=== PATIENT | female | born 1950 | race Caucasian/White ===

== ENCOUNTER 2016-08-09 18:05 | Inpatient (IN) | payer OTHER ==
[2016-08-09] VITALS (7 sets, daily range): BP systolic 141–174; BP diastolic 70–87; PULSE 84–96; RESP 16–24; O2SAT 91–100
[~2016-08-09] VITALS: Ht 162.6 cm; Wt 45.5 kg
[~2016-08-09 18:05] MED LIST: CARD240C6 PO; ENOX40P SQ; LANSO30 NG; LEVE500S TUBE; PHEN100C PEG; PHEN20S PEG; VANC500 PEG
[2016-08-09] MEDS ORDERED: SODIUM CHLOR 0.9% 1000 ML INJ 1,000 ML IV SCH (18:30)
--- NOTE | 2016-08-09 18:40 | PD ---
HPI Chief Complaint: Bleeding Time Seen by Provider: 18:11 Travel History International Travel<30 days: No Contact w/Intl Traveler<30days: No Traveled to known affect area: No History of Present Illness HPI 65-year-old female was brought in by her for blood coming out of the tracheostomy. Patient has history of recurrent seizure and on multiple seizure medication. Patient was a difficult intubation and patient had tracheostomy placement December 2015, reportedly by Dr. Estes. Patient has been doing well. Patient's states the patient started having blood and blood clots coming out of the tracheostomy this evening. Patient's the noncommunicable normally. History provided by her . Patient is not on any blood thinner. Patient's reported no recent coughing congestion. 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 Patient has recurrent seizures since then and on medications. Patient also has weakness of the left arm left leg and limited movement of the right leg. Patient can move her right arm actively. PFSH Past Medical History Heart Rhythm Problems: No Cancer: Yes (glioblastoma brain tumor) High Cholesterol: No Chemotherapy: Yes Chest Pain: No Congestive Heart Failure: No Cerebrovascular Accident: No Diabetes: No Diminished Hearing: No Endocrine: No Gastrointestinal Disorders: Yes GERD: Yes Genitourinary: No Headaches: Yes Hypertension: Yes Immune Disorder: No Implanted Vascular Access Dvce: No Musculoskeletal: No Neurologic: Yes (GLIOBLASTOMA, PER PT'S SPOUSE) Psychiatric: No Reproductive: No Respiratory: No Migraines: Yes Radiation Therapy: Yes (MARCH 2015) Seizures: Yes Thyroid Disease: No Ulcer: Yes Menopausal: Yes : 0 Para: 0 Miscarriage: 0 : 0 Past Surgical History Abdominal Surgery: No Cardiac Surgery: No Ear Surgery: No Endocrine Surgery: No Eye Surgery: No Genitourinary Surgery: No Gynecologic Surgery: Yes (hysterectomy 1970) Hysterectomy: Yes Neurologic Surgery: Yes (cranaotmy) Oral Surgery: Yes (tonsils) Thoracic Surgery: No Tonsillectomy: Yes Other Surgery: Yes (TRACH PLACED) Social History Alcohol Use: No Tobacco Use: No Substance Use: No Allergies-Medications (Allergen,Severity, Reaction): Coded Allergies: Codeine (Unverified Allergy, Unknown, Swelling, 08/09/16) Reported Meds & Prescriptions Reported Meds & Active Scripts Active Reported Prevacid Solutab ODT (Lansoprazole) 30 Mg Tab 30 Mg G-TUBE DAILY Mix with 4 ml water before giving via tube. Keppra Liq (Levetiracetam) 500 Mg/5 Ml Soln 7.5 Ml PEG BID Dilantin-125 Liq (Phenytoin) 125 Mg/5 Ml Susp 6 Ml PEG TID Phenobarbital Liq (Phenobarbital) 20 Mg/5 Ml Elix 10 Ml PEG BID Cardizem (Diltiazem HCl) 30 Mg Tab 10 Mg PEG DAILY Review of Systems General / Constitutional: No: Fever Eyes: No: Visual changes HENT: No: Headaches Cardiovascular: No: Chest Pain or Discomfort Respiratory: Positive: Hemoptysis, No: Shortness of Breath Gastrointestinal: No: Abdominal Pain Genitourinary: No: Dysuria Musculoskeletal: No: Pain Skin: No Rash Neurologic: No: Weakness Psychiatric: No: Depression Endocrine: No: Polydipsia Hematologic/Lymphatic: No: Easy Bruising Physical Exam Narrative GENERAL: Well-nourished, well-developed patient. SKIN: Warm and dry. HEAD: Normocephalic. EYES: No scleral icterus. No injection or drainage. NECK: Supple, trachea midline. No JVD or lymphadenopathy. Tracheostomy in place. Patient has fresh blood and blood clots coming out of the tracheostomy. CARDIOVASCULAR: Regular rate and rhythm without murmurs, gallops, or rubs. RESPIRATORY: Breath sounds equal bilaterally. No accessory muscle use. Patient has rhonchi bibasilar. GASTROINTESTINAL: Abdomen soft, non-tender, nondistended. MUSCULOSKELETAL: No cyanosis, or edema. BACK: Nontender without obvious deformity. No CVA tenderness. Neurologic exam: Patient awake alert, noncommunicable. Patient can move the right arm. No movement detected on the left arm left leg on the right leg. Patient in contracture position. Data Data Last Documented VS Vital Signs Date Time Temp Pulse Resp B/P Pulse Ox O2 Delivery O2 Flow Rate FiO2 08/09/16 18:40 84 24 149/71 91 T-piece 6 08/09/16 18:23 50 Orders Electrocardiogram (08/09/16 18:19) Complete Blood Count With Diff (08/09/16 18:19) Comprehensive Metabolic Panel (08/09/16 18:19) Prothrombin Time / Inr (Pt) (08/09/16 18:19) Act Partial Throm Time (Ptt) (08/09/16 18:19) Chest, Single Ap (08/09/16 18:19) Iv Access Insert/Monitor (08/09/16 18:19) Ecg Monitoring (08/09/16 18:19) Oximetry (08/09/16 18:19) Type And Screen (08/09/16 18:19) Sodium Chlor 0.9% 1000 Ml Inj (Ns 1000 M (08/09/16 18:30) Admit Order (Ed Use Only) (08/09/16 18:45) Labs Laboratory Tests Test 08/09/16 18:26 White Blood Count 10.9 TH/MM3 Red Blood Count 3.67 MIL/MM3 Hemoglobin 11.0 GM/DL Hematocrit 33.7 % Mean Corpuscular Volume 91.9 FL Mean Corpuscular Hemoglobin 30.1 PG Mean Corpuscular Hemoglobin 32.8 % Concent Red Cell Distribution Width 18.5 % Platelet Count 318 TH/MM3 Mean Platelet Volume 7.6 FL Neutrophils (%) (Auto) 54.7 % Lymphocytes (%) (Auto) 20.7 % Monocytes (%) (Auto) 9.7 % Eosinophils (%) (Auto) 14.2 % Basophils (%) (Auto) 0.7 % Neutrophils # (Auto) 5.9 TH/MM3 Lymphocytes # (Auto) 2.3 TH/MM3 Monocytes # (Auto) 1.1 TH/MM3 Eosinophils # (Auto) 1.6 TH/MM3 Basophils # (Auto) 0.1 TH/MM3 CBC Comment DIFF FINAL Differential Comment MDM Medical Decision Making Medical Screen Exam Complete: Yes Emergency Medical Condition: Yes Differential Diagnosis Differential diagnosis including AV malformation, fistula, tracheal irritation, coagulopathy. Narrative Course 65-year-old female with active bleeding from tracheostomy. Gentle suction applied to the tracheostomy. Flow by oxygen given. IV started. CBC and Coagulation profile obtained. Normal saline solution 1 25 cc an hour. I spoke with Dr. Brand, enterprise application architect on-call for Dr. Estes. Advised ICU admission and observation and tracheostomy suction if necessary. Diagnosis Primary Impression: Hemoptysis Additional Impression: Tracheostomy complication Qualified Code: J95.01 - Hemorrhage from tracheostomy stoma Admitting Information Admitting Physician Requests: Admit Pedrito Hollingsworth MD Aug 09, 2016 18:40
[2016-08-09] MEDS ORDERED: LEVE500S PEG (18:54)
[2016-08-09] MEDS ORDERED: DILA125S PEG (18:54)
[2016-08-09] MEDS ORDERED: DILT31TA PEG (18:54)
[2016-08-09] MEDS ORDERED: PREV30TA3 G-TUBE (18:54)
[2016-08-09] MEDS ORDERED: PHEN20EL3 PEG (18:54)
[2016-08-09 18:55] LABS: AUTOMATED NEUTROPHIL # 5.9 TH/MM3 (1.8-7.7); BASOPHIL # 0.1 TH/MM3 (0-0.2); BASOPHIL % 0.7 % (0.0-2.0); EOSINOPHIL # 1.6 TH/MM3 (0-0.4); EOSINOPHIL % 14.2 % (0.0-4.0); HEMATOCRIT 33.7 % (35.0-46.0); HEMO FLAGS DIFF FINAL; LYMPH % 20.7 % (9.0-44.0); LYMPHOCYTE # 2.3 TH/MM3 (1.0-4.8); MEAN CELL VOLUME 91.9 FL (80.0-100.0); MEAN CORPUSCULAR HEMOGLOBIN 30.1 PG (27.0-34.0); MEAN CORPUSCULAR HGB CONC 32.8 % (32.0-36.0); MONO % 9.7 % (0.0-8.0); NEUT % 54.7 % (16.0-70.0); PLATELET COUNT 318 TH/MM3 (150-450); RED BLOOD COUNT 3.67 MIL/MM3 (4.00-5.30); RED CELL DISTRIBUTION WIDTH 18.5 % (11.6-17.2); WHITE BLOOD COUNT 10.9 TH/MM3 (4.0-11.0)
[2016-08-09 19:13] LABS: ANION GAP 8 MEQ/L (5-15); AST (GOT) 59 U/L (15-37); BICARBONATE 31.5 MEQ/L (21.0-32.0); BLOOD UREA NITROGEN 21 MG/DL (7-18); CHLORIDE 99 MEQ/L (98-107); GLOMERULAR FILTRATION RATE 125 ML/MIN (>89); POTASSIUM 3.6 MEQ/L (3.5-5.1); SODIUM (NA) 138 MEQ/L (136-145)
[2016-08-09 19:16] LABS: ALKALINE PHOSPHATASE 232 U/L (45-117); ALT (GPT) 112 U/L (10-53); TOTAL BILIRUBIN ADULT 0.2 MG/DL (0.2-1.0)
[2016-08-09 19:17] LABS: APTT (PATIENT) 28.4 SEC (24.3-30.1); PROTHROMBIN TIME - PATIENT 10.9 SEC (9.8-11.6)
--- NOTE | 2016-08-09 19:22 | RADRPT ---
EXAM DATE/TIME: 08/09/2016 18:20 [facility] COMPARISON: CHEST SINGLE AP, February 02, 2016, 4:28. INDICATIONS : Shortness of breath. MEDICAL HISTORY : None. SURGICAL HISTORY : None. ENCOUNTER: Initial ACUITY: 1 day PAIN SCORE: Non-responsive. LOCATION: Bilateral chest FINDINGS: A single view of the chest demonstrates the lungs to be symmetrically aerated without evidence of mas s, infiltrate or effusion. There is a tracheostomy tube in good position. The cardiomediastinal cont ours are unremarkable. Osseous structures are intact. CONCLUSION: No acute disease. Zeus Wharton MD on August 09, 2016 at 19:20 Board Certified Radiologist. This report was verified electronically.
--- NOTE | 2016-08-09 22:57 | HHI.HP ---
HPI Service Critical Care Medicine Primary Care Physician Tato Colunga MD Admission Diagnosis hemoptysis other Diagnosis: Travel History International Travel<30 Days: No Contact w/Intl Traveler <30 Da: No Traveled to Known Affected Are: No History of Present Illness 38 yo WF who presented to ED with reported massive hemoptysis via tracheostomy. She has a PMH of glioblastoma multiforme diagnosed in December 2014. She underwent craniectomy with partial resection by Dr. Mathew and then was subsequently treated with radiation in March 2015 and Temodar chemotherapy starting in April 2015. She had some response to chemo but it was discontinued after about a year due to an intolerance (per ). She was admitted for about a month in December/January of 2015 with status epilepticus. Seizures were difficult to control despite multiple anticonvulsants. She had bitten her tongue during seizures resulting in significant swelling and airway compromise so she could not be safely extubated. Therefore she underwent trach (01/29/[address] Jerez) and PEG. She remains nonverbal, bed bound. Trach is managed by Dr. Estes and remains in place due to concern that her baseline level of alertness may not be adequate to protect airway. states this may in part be attributed to her anticonvulsants, and there have been efforts to wean these. Tonight at around 18:30 her was repositioning her in bed and she coughed up a large amount of bright red blood that covered her clothes, legs, bedsheets. He states he had not manipulated her trach or suctioned prior to this. He states she had not been experiencing cough or fever and has never had hemoptysis before aside from some blood tinged secretions with suctioning. She had another episode of hemoptysis in the car as he drove her to the hospital. Upon arrival to ED, Dr. Hollingsworth states she had an episode of large bright red hemoptysis and she had desaturation requiring 50% trach collar. At baseline she is on room air. Trach was suctioned gently and there were some clots removed also. Dr. Hollingsworth discussed with ham boner Dr. Brand who recommended ICU admission. She is not on anticoagulants or antiplatelets. Review of Systems Respiratory: COMPLAINS OF: Shortness of breath Past Family Social History Allergies: Coded Allergies: Codeine (Verified Allergy, Unknown, Swelling, 08/15/16) Past Medical History Glioblastoma multiforme diagnosed in December 2014 status post chemotherapy and radiation Seizure disorder Past Surgical History Craniotomy with stereotactic tumor resection 01/19/15 (Dr. Mathew) Percutaneous Tracheostomy 01/29/16 (Dr. Jerez) PEG hysterectomy Tonsillectomy Reported Medications Keppra 750 mg by mouth per tube twice a day Phenobarbital 40 mg per tube twice a day Cardizem 10 mg per tube daily Dilantin 150 mg per tube 3 times a day Prevacid 30 mg per tube daily Family History Unable to obtain family medical history patient due to clinical condition. Social History She is . She lives at home and her cares for her. No tobacco, alcohol, or illicit drug use. Physical Exam Vital Signs Vital Signs Date Time Temp Pulse Resp B/P Pulse Ox O2 Delivery O2 Flow Rate FiO2 08/09/16 22:00 84 20 141/71 100 T-piece 6 08/09/16 21:00 84 20 145/70 99 T-piece 6 08/09/16 20:00 96 20 174/87 96 T-piece 6 08/09/16 19:00 88 20 154/78 97 T-piece 6 08/09/16 18:40 84 24 149/71 91 T-piece 6 08/09/16 18:23 22 98 Venturi Mask 50 08/09/16 18:21 87 22 98 Venturi Mask 50 08/09/16 18:12 84 16 142/74 99 Physical Exam Temp 99.9 blood pressure 141/71 R 20 pulse 84 Sats 98% on 50% trach collar GENERAL: Thin and chronically ill-appearing female with trach who is nonverbal, contracted SKIN: Warm and dry. HEAD: Atraumatic. Normocephalic. EYES: Pupils equal and round. No scleral icterus. ENT: No nasal bleeding, no blood in oropharynx NECK: 6.[address] Cuff currently deflated. There is some dried blood within the trach inner cannula. There is some granulation tissue and superior aspect of stoma without clot or active bleeding.There is small ring of dried blood on the sides of the stoma without active bleeding. CARDIOVASCULAR: Regular rate and rhythm, sinus on the monitor. No murmurs rubs or gallops. RESPIRATORY: appears to be breathing comfortably, no accessory muscle use, CTAB without rhonchi. No wheeze or rales. GASTROINTESTINAL: Abdomen soft, non-tender, nondistended. Bowel sounds present. MUSCULOSKELETAL: Extremities without clubbing, cyanosis. Contractures of LUE and BLE. NEUROLOGICAL: Eyes open, nonverbal, spontanously moves RUE, BLE are contracted. Does not follow commands. Laboratory Laboratory Tests Test 08/09/16 08/09/16 18:24 18:26 Antibody Identification Anti-D White Blood Count 10.9 Red Blood Count 3.67 Hemoglobin 11.0 Hematocrit 33.7 Mean Corpuscular Volume 91.9 Mean Corpuscular Hemoglobin 30.1 Mean Corpuscular Hemoglobin 32.8 Concent Red Cell Distribution Width 18.5 Platelet Count 318 Mean Platelet Volume 7.6 Neutrophils (%) (Auto) 54.7 Lymphocytes (%) (Auto) 20.7 Monocytes (%) (Auto) 9.7 Eosinophils (%) (Auto) 14.2 Basophils (%) (Auto) 0.7 Neutrophils # (Auto) 5.9 Lymphocytes # (Auto) 2.3 Monocytes # (Auto) 1.1 Eosinophils # (Auto) 1.6 Basophils # (Auto) 0.1 CBC Comment DIFF FINAL Differential Comment Prothrombin Time 10.9 Prothromb Time International 1.0 Ratio Activated Partial 28.4 Thromboplast Time Sodium Level 138 Potassium Level 3.6 Chloride Level 99 Carbon Dioxide Level 31.5 Anion Gap 8 Blood Urea Nitrogen 21 Creatinine 0.50 Estimat Glomerular Filtration 125 Rate Random Glucose 117 Calcium Level 8.3 Total Bilirubin 0.2 Aspartate Amino Transf 59 (AST/SGOT) Alanine Aminotransferase 112 (ALT/SGPT) Alkaline Phosphatase 232 Total Protein 7.6 Albumin 2.8 Blood Type O NEGATIVE Antibody Screen POSITIVE Crossmatch Leukocyte-Reduced Red Blood Cells Blood Bank Comment Result Diagram: 08/09/16182508/09/161825 Assessment and Plan Assessment and Plan NEURO: Glioblastoma multiforme Seizure disorder Checked phenobarbital and dilantin levels which are therapeutic Phenobarbital 40 mg by mouth twice a day Dilantin 150 mg per tube 3 times a day Keppra 750 mg per tube twice a day Patient no longer on chemo for GBM RESP: Hemoptysis. Tracheostomy (placed 01/29/16 Dr. Jerez) Given duration of patients trach and presentation of large volume hemoptysis, tracheoinnominate fistula must be considered. Currently hemoptysis has stopped. Discussed with . Intervention for tracheoinnominate fistula would seem aggressive in this patient given her current overall condition and quality of life. Nonetheless, he indicates that he wants aggressive measures ( short of CPR/shocks) to stabilize her. Discussed with Dr. Oliva of general surgery who states [facility] consult is instead needed if TIF is of concern. Discussed with Dr. Marquez who recommended CT chest and neck and notification if recurrent large volume bleeding. On way to get CT patient coughed and expectorated about 10-15 cc of BRB and grape-sized clot via trach and she was jose back to ED room where this was suctioned gently and then hemoptysis stopped. -ABG demonstrates satisfactory ventilation, tolerating 50% trach collar - Morphine prn cough. -Avoid suctioning unless she has active hemoptysis that is not clearing. --Keep trach cuff inflated -Empiric abx, mucomyst/albuterol nebs. -Pulmonology consult, Dr. Brand. --Notify [facility] of massive hemoptysis. CV: Continue Cardizem 10 mg per tube daily 0.9 NaCl at 50 mL/h Labetalol/ hydralazine as needed for systolic pressure greater than 150 GI: Dysphagia s/p PEG NPO, may need rigid bronchoscopy to evaluate trachea. Initiate tube feeds when workup completed. FEN/RENAL: Shin in place. Monitor intake and output. Monitor electrolyte and replace as indicated ID: UTI Urinalysis positive leukocyte esterase, positive nitrate, few bacteria. Rocephin 1 g IV every 12 to cover UTI and for empiric community acquired respiratory coverage in setting of hemoptysis. Azithromycin 500 tube q24. HEME: Monitor CBC. Typed and crossed. ENDO: Euglycemic PROPH: SCDs for DVT prophylaxis. Hold on pharmacologic DVT prophylaxis due to hemoptysis. Protonix 40 mg IV IV daily for stress ulcer prophylaxis ACCESS: Peripheral IV providing adequate access at this time. The patient's updated at bedside. Discussed CODE STATUS. He states that she would not want CPR/shocks for pulseless arrest. He does want her to receive active treatment and would be agreeable to procedures as necessary. Would be agreeable to reintubation if needed. CODE STATUS is alternate code (intubation only) Discussed with Dr. Oliva. Discussed with Dr. Caryl Marquez. Critical care time 60 minutes exclusive of separately billable procedures. Nhi Flores MD Aug 09, 2016 22:57
[2016-08-09] MEDS ORDERED: CHLORHEXIDINE GLUCONATE 2 % 1 PACK (2 CLOTHS) TOP PRN (23:15)
[2016-08-09] MEDS ORDERED: ONDANSETRON HCL 4 MG/2 ML VIAL IV PRN (23:15)
[2016-08-09] MEDS ORDERED: MISCELLANEOUS NURSING INFORMATION XX SCH (23:15)
[2016-08-09] MEDS ORDERED: SODIUM CHLORIDE 0.9% FLUSH 5 ML FLUSH IV FLUSH PRN (23:15)
[2016-08-09] MEDS ORDERED: RESP: ALBUTEROL 2.5 MG/3 ML NEB (PRN) INH (23:15)
[2016-08-09] MEDS ORDERED: MORPHINE SULFATE 8 MG/ML INJ ONE (23:23)
[2016-08-10] VITALS (16 sets, daily range): BP systolic 108–145; BP diastolic 57–72; PULSE 72–96; RESP 14–28; TEMP 99–100.2; O2SAT 35–100
[2016-08-10] MEDS: SODIUM CHLOR 0.9% 1000 ML INJ 1,000 ML IV SCH ×2 (00:01→23:12)
[2016-08-10] MEDS ORDERED: MORPHINE SULFATE 4 MG/ML INJ IV PUSH ONE (00:30)
[2016-08-10] MEDS ORDERED: PILL SPLITTER OTHER PRN (00:45)
[2016-08-10] MEDS: PHENobarbital ELIX 20 MG/5 ML CUP PO SCH ×3 (01:39→23:11)
[2016-08-10] MEDS ORDERED: IOHEXOL 350 MG/ML 10 ML VIAL (for RAD DIAG) IV ONE (02:05)
--- NOTE | 2016-08-10 02:18 | RADRPT ---
EXAM DATE/TIME: 08/10/2016 01:54 [facility] COMPARISON: No previous studies available for comparison. INDICATIONS : Bleeding from tracheostomy. IV CONTRAST: 30 cc Omnipaque 350 (iohexol) IV RADIATION DOSE: 10.54 CTDIvol (mGy) MEDICAL HISTORY : Seizures. Hypertension. Glioblastoma SURGICAL HISTORY : Hysterectomy. Craniotomy.Tracheotomy ENCOUNTER: Initial ACUITY: 1 day PAIN SCALE: Non-responsive LOCATION: neck TECHNIQUE: Volumetric scanning of the neck was performed. Using automated exposure control and adjustment of th e mA and/or kV according to patient size, radiation dose was kept as low as reasonably achievable to obtain optimal diagnostic quality images. FINDINGS: Examination of the skull base demonstrates no evidence of deep infiltrating mucosal lesion. The oroph arynx, hypopharynx, glottic and subglottic airway demonstrate no abnormality. Examination of the neck for adenopathy demonstrates no abnormally large lymph nodes by CT criteria. T he thyroid gland demonstrates no abnormality. There is abnormal soft tissue density surrounding the t racheostomy site around the thyroid and strap muscles characteristic of hematoma. No active extravasa tion is seen. The esophagus is fluid filled. Aortic arch appears normal. The brachiocephalic artery p asses inferior to the tracheostomy site. Lung apices demonstrate no evidence of pulmonary nodule. Bone windows are unremarkable. CONCLUSION: 1. Findings compatible with hematoma surrounding the tracheostomy site. No fistula is identified Levi Machado MD on August 10, 2016 at 2:14 Board Certified Radiologist. This report was verified electronically.
--- NOTE | 2016-08-10 02:21 | RADRPT ---
EXAM DATE/TIME: 08/10/2016 01:58 [facility] COMPARISON: CT THORAX W CONTRAST, January 17, 2015, 16:30. INDICATIONS : Hemoptysis. IV CONTRAST: 65 cc Omnipaque 350 (iohexol) IV RADIATION DOSE: 3.32 CTDIvol (mGy) MEDICAL HISTORY : Seizures. Hypertension. Glioblastoma SURGICAL HISTORY : Hysterectomy. Craniotomy.tracheotomy ENCOUNTER: Initial ACUITY: 1 day PAIN SCALE: Non-responsive LOCATION: chest TECHNIQUE: Volumetric scanning of the chest was performed. Using automated exposure control and adjustment of t he mA and/or kV according to patient size, radiation dose was kept as low as reasonably achievable to obtain optimal diagnostic quality images. FINDINGS: Biapical pleural thickening is present. Bibasilar atelectasis is present. No pulmonary nodules are id entified. No pleural effusions are identified. Examination of the mediastinum demonstrates no abnormally enlarged lymph nodes by CT criteria. No axi llary or hilar abnormalities are identified. Coronary artery calcifications are not present. The trac heostomy enters above the brachiocephalic artery with hematoma surrounding the access site. CONCLUSION: 1. No evidence of fistula or hematoma surrounding the tracheostomy site. 2. Bibasilar atelectasis Levi Machado MD on August 10, 2016 at 2:18 Board Certified Radiologist. This report was verified electronically.
[2016-08-10 02:27] LABS: PHENOBARBITAL 22.7 MCG/ML (15.0-40.0)
[2016-08-10] MEDS ORDERED: LABETALOL HCL 100 MG/20 ML VIAL IV PUSH PRN (03:00)
[2016-08-10] MEDS ORDERED: MORPHINE SULFATE 4 MG/ML INJ IV PUSH PRN (03:00)
[2016-08-10 03:21] LABS: BACTERIA, URINE OCC /hpf; BLOOD, URINE SMALL (NEG); GLUCOSE,URINE NEG (NEG); KETONE, URINE NEG (NEG); MUCUS URINE MOD /lpf (OCC); SQUAMOUS EPITHELIAL CELL URINE <1 /hpf (0-5); URINE COLOR YELLOW (YELLW/STRAW)
[2016-08-10 03:22] LABS: COMMENT (UR) CATH-CULTURE IND; CULTURE IF INDICATED CATH CULTURE IND; NITRITE,URINE POS (NEG)
[2016-08-10] MEDS: cefTRIAXone INJ 1,000 MG in SODIUM CHLORIDE 0.9% INJ 100 ML IV SCH ×2 (03:22→15:21)
[2016-08-10] MEDS: RESP: ALBUTEROL 2.5 MG/3 ML NEB (SCH) INH ×4 (03:52→20:18)
[2016-08-10] MEDS: RESP: ACETYLCYSTEINE 20% 30 ML NEB NEB SCH ×4 (03:59→21:22)
[2016-08-10] MEDS: CHLORHEXIDINE GLUCONATE 2 % 1 PACK (2 CLOTHS) TOP SCH (04:00)
[2016-08-10 04:51] LABS: AUTOMATED NEUTROPHIL # 8.3 TH/MM3 (1.8-7.7); BASOPHIL # 0.1 TH/MM3 (0-0.2); BASOPHIL % 0.7 % (0.0-2.0); EOSINOPHIL # 0.8 TH/MM3 (0-0.4); EOSINOPHIL % 6.6 % (0.0-4.0); HEMATOCRIT 31.7 % (35.0-46.0); HEMO FLAGS DIFF FINAL; LYMPHOCYTE # 1.7 TH/MM3 (1.0-4.8); MEAN CORPUSCULAR HEMOGLOBIN 30.3 PG (27.0-34.0); MEAN CORPUSCULAR HGB CONC 32.9 % (32.0-36.0); MONO % 9.1 % (0.0-8.0); NEUT % 69.6 % (16.0-70.0); PLATELET COUNT 245 TH/MM3 (150-450); RED BLOOD COUNT 3.45 MIL/MM3 (4.00-5.30); RED CELL DISTRIBUTION WIDTH 18.6 % (11.6-17.2)
[2016-08-10 05:12] LABS: BICARBONATE 27.5 MEQ/L (21.0-32.0)
[2016-08-10 05:17] LABS: BLOOD GAS BASE EXCESS 3.4 mmol/L (-2-2); BLOOD GAS CARBOXYHEMOGLOBIN 1.6 % (0-4); BLOOD GAS HCO3 28 mmol/L (22-26); BLOOD GAS METHEMOGLOBIN 0.8 % (0-2); BLOOD GAS O2 HGB SATURATION 96 % (90-100); BLOOD GAS OXYGEN CONTENT 13.6 Vol % (12.0-20.0); BLOOD GAS PCO2 45 mmHg (38-42); BLOOD GAS PO2 104 mmHg (61-120); CRITICAL VALUE NO; TEMP CORR TO 98.6
[2016-08-10 05:18] LABS: DRAW SITE RT RADIAL; FIO2 50 %; LITER FLOW 6 L/M; NUMBER OF ARTERIAL PUNCTURES 1; OXYGEN DEVICE T-COLLAR; ULNAR PULSE PRESENT
[2016-08-10 05:19] LABS: STAT YES
[2016-08-10] MEDS: PHENYTOIN SUSP 100 MG/4 ML CUP PEG SCH ×3 (06:37→23:12)
[2016-08-10] MEDS ORDERED: hydrALAZINE HCL 20 MG/ML VIAL IV PUSH PRN (08:45)
[2016-08-10] MEDS: levETIRAcetam 500 MG/5 ML UDC PEG SCH ×2 (08:57→23:12)
[2016-08-10] MEDS: DILTIAZEM HCL 30 MG TAB PEG SCH (08:57)
[2016-08-10] MEDS: PANTOPRAZOLE SODIUM 40 MG VIAL IV SCH (08:57)
[2016-08-10] MEDS: SODIUM CHLORIDE 0.9% FLUSH 5 ML FLUSH IV FLUSH SCH ×2 (09:00→23:12)
[2016-08-10] MEDS: AZITHROMYCIN SUSP 200 MG/5 ML 15 ML BTL TUBE SCH (10:00)
--- NOTE | 2016-08-10 11:33 | PD.CONS ---
History of Present Illness Service CT Surgery Consult Requested By Dr. Flores Reason for Consult Hemoptysis from tracheostomy Primary Care Physician Tato Colunga MD Diagnoses: (1) Seizure (2) Tracheostomy complication (3) Hemoptysis (4) Glioblastoma multiforme of brain History of Present Illness 65 yo female who presented with reported massive hemoptysis via tracheostomy. She has a h/o glioblastoma multiforme diagnosed in December 2014. She underwent craniectomy with partial resection by Dr. Mathew and then was subsequently treated with radiation in March 2015 and chemotherapy starting in April 2015. She had some response to chemo but it was discontinued after about a year. She was admitted for about a month in December/January of 2015 with status epilepticus. Seizures were difficult to control despite multiple anticonvulsants. She had bitten her tongue during seizures resulting in significant swelling and airway compromise so she could not be safely extubated. Therefore she underwent trach (01/29/[address] Jerez) and PEG. She remains nonverbal, bed bound. Trach is managed by Dr. Estes and remains in place due to concern that her baseline level of alertness may not be adequate to protect airway. states this may in part be attributed to her anticonvulsants, and there have been efforts to wean these. Tonight at around 18:30 her was repositioning her in bed and she coughed up a large amount of bright red blood that covered her clothes, legs, bedsheets. He states he had not manipulated her trach or suctioned prior to this. He states she had not been experiencing cough or fever and has never had hemoptysis before aside from some blood tinged secretions with suctioning. She had another episode of hemoptysis in the car as he drove her to the hospital. Upon arrival to ED, Dr. Hollingsworth states she had an episode of large bright red hemoptysis and she had desaturation requiring 50% trach collar. Review of Systems ROS Limitations: Clinical Condition, Altered Mental Status, Speech Impaired Except as stated in HPI: all other systems reviewed are Neg Past Family Social History Allergies: Coded Allergies: Codeine (Unverified Allergy, Unknown, Swelling, 08/09/16) Past Medical History Glioblastoma multiforme diagnosed in December 2014 status post chemotherapy and radiation Seizure disorder Past Surgical History Craniotomy with stereotactic tumor resection 01/19/15 (Dr. Mathew) Percutaneous Tracheostomy 01/29/16 (Dr. Jerez) PEG hysterectomy Tonsillectomy Reported Medications Keppra 750 mg by mouth per tube twice a day Phenobarbital 40 mg per tube twice a day Cardizem 10 mg per tube daily Dilantin 150 mg per tube 3 times a day Prevacid 30 mg per tube daily Family History Unable to obtain family medical history patient due to clinical condition. Social History She is . She lives at home and her cares for her. No tobacco, alcohol, or illicit drug use. Active Ordered Medications Current Medications Medications (Trade) Dose Ordered Sig/Shameka Route Start Time Stop Time Status Last Admin (NS 1000 ml Inj) 1,000 ml @ 50 mls/hr Q20H IV 08/09/16 23:01 08/10/16 00:01 (NS Flush) 2 ml UNSCH PRN IV FLUSH 08/09/16 23:15 (NS Flush) 2 ml BID IV FLUSH 08/10/16 09:00 08/10/16 09:00 (Protonix Inj) 40 mg DAILY IV 08/10/16 09:00 08/10/16 08:57 (Zofran Inj) 4 mg Q6H PRN IV 08/09/16 23:15 Miscellaneous Information 1 [id number] XX 08/09/16 23:15 (Chlorhexidine 2% Cloth) 3 pack Taper DAILY@04 TOP 08/10/16 04:00 08/06/17 03:59 08/10/16 04:00 (Chlorhexidine 2% Cloth) 3 pack UNSCH PRN TOP 08/09/16 23:15 (Cardizem) 10 mg DAILY PEG 08/10/16 09:00 08/10/16 08:57 (Keppra Liq) 750 mg BID PEG 08/10/16 09:00 08/10/16 08:57 (Dilantin Liq) 150 mg Q8HR PEG 08/10/16 06:00 08/10/16 06:37 (PHENobarbital LIQ) 40 mg Q12HR PO 08/10/16 00:45 08/10/16 10:10 (Pill Splitter) 1 ea UNSCH PRN OTHER 08/10/16 00:45 Labetalol HCl 10 mg 10 mg Q4H PRN IV PUSH 08/10/16 03:00 (Rocephin Inj/NS Inj) 100 ml @ 200 mls/hr Q12H IV 08/10/16 03:00 08/10/16 03:22 (Morphine Inj) 2 mg Q3H PRN IV PUSH 08/10/16 03:00 (Zithromax 200 Mg/5 ml Liq) 500 mg Q24H TUBE 08/10/16 10:00 (Apresoline Inj) 10 mg Q4H PRN IV PUSH 08/10/16 08:45 Physical Exam Vital Signs Vital Signs Date Time Temp Pulse Resp B/P Pulse Ox O2 Delivery O2 Flow Rate FiO2 08/10/16 10:00 81 08/10/16 08:00 99.9 72 14 145/72 100 08/10/16 08:00 81 08/10/16 07:59 99.9 72 14 145/72 100 08/10/16 07:55 81 08/10/16 07:52 35 Trach Collar 6.00 08/10/16 06:00 81 08/10/16 04:30 99.9 75 14 108/57 100 08/10/16 04:00 74 08/10/16 04:00 98 Trach Collar 6.00 50 08/10/16 02:30 100.0 84 20 135/60 95 08/10/16 02:30 84 08/09/16 22:00 84 20 141/71 100 T-piece 6 08/09/16 21:00 84 20 145/70 99 T-piece 6 08/09/16 21:00 96 Trach Collar 7.00 60 08/09/16 20:00 96 20 174/87 96 T-piece 6 08/09/16 19:00 88 20 154/78 97 T-piece 6 08/09/16 18:40 84 24 149/71 91 T-piece 6 08/09/16 18:23 22 98 Venturi Mask 50 08/09/16 18:21 87 22 98 Venturi Mask 50 08/09/16 18:12 84 16 142/74 99 Physical Exam GENERAL: This is a cachectic 65y/o female who is lethargic and not responsive currently. SKIN: No rashes, ecchymoses or lesions. Cool and dry. HEAD: Atraumatic. Normocephalic. No temporal or scalp tenderness. EYES: Pupils equal round and reactive. Extraocular motions intact. No scleral icterus. No injection or drainage. ENT: Nose without bleeding, purulent drainage or septal hematoma. Throat without erythema, tonsillar hypertrophy or exudate. Uvula midline. Airway patent. NECK: Trachea midline. No JVD or lymphadenopathy. Cuffed trach in place with cuff partially inflated. There is dried and coagulated blood around the stoma. CARDIOVASCULAR: Regular rate and rhythm without murmurs, gallops, or rubs. RESPIRATORY: Clear to auscultation. Breath sounds equal bilaterally. No wheezes , rales, or rhonchi. GASTROINTESTINAL: Abdomen soft, non-tender, nondistended. No hepato-splenomegaly , or palpable masses. No guarding. MUSCULOSKELETAL: Extremities without clubbing, cyanosis, or edema. No joint tenderness, effusion, or edema noted. No calf tenderness. Negative Homans sign bilaterally. NEUROLOGICAL: unresponsive. Laboratory Laboratory Tests Test 08/09/16 08/09/16 08/10/16 08/10/16 18:24 18:26 02:45 04:27 Antibody Identification Anti-D White Blood Count 10.9 12.0 Red Blood Count 3.67 3.45 Hemoglobin 11.0 10.4 Hematocrit 33.7 31.7 Mean Corpuscular Volume 91.9 92.0 Mean Corpuscular Hemoglobin 30.1 30.3 Mean Corpuscular Hemoglobin 32.8 32.9 Concent Red Cell Distribution Width 18.5 18.6 Platelet Count 318 245 Mean Platelet Volume 7.6 8.0 Neutrophils (%) (Auto) 54.7 69.6 Lymphocytes (%) (Auto) 20.7 14.0 Monocytes (%) (Auto) 9.7 9.1 Eosinophils (%) (Auto) 14.2 6.6 Basophils (%) (Auto) 0.7 0.7 Neutrophils # (Auto) 5.9 8.3 Lymphocytes # (Auto) 2.3 1.7 Monocytes # (Auto) 1.1 1.1 Eosinophils # (Auto) 1.6 0.8 Basophils # (Auto) 0.1 0.1 CBC Comment DIFF FINAL DIFF FINAL Differential Comment Prothrombin Time 10.9 Prothromb Time International 1.0 Ratio Activated Partial 28.4 Thromboplast Time Sodium Level 138 138 Potassium Level 3.6 4.0 Chloride Level 99 104 Carbon Dioxide Level 31.5 27.5 Anion Gap 8 7 Blood Urea Nitrogen 21 18 Creatinine 0.50 0.44 Estimat Glomerular Filtration 125 144 Rate Random Glucose 117 103 Calcium Level 8.3 7.9 Total Bilirubin 0.2 Aspartate Amino Transf 59 (AST/SGOT) Alanine Aminotransferase 112 (ALT/SGPT) Alkaline Phosphatase 232 Total Protein 7.6 Albumin 2.8 Blood Type O NEGATIVE Antibody Screen POSITIVE Crossmatch Leukocyte-Reduced Red Blood Cells Blood Bank Comment Phenytoin (Dilantin) Level 18.2 Phenobarbital Level 22.7 Urine Color YELLOW Urine Turbidity HAZY Urine pH 7.0 Urine Specific Leonore 1.037 Urine Protein TRACE Urine Glucose (UA) NEG Urine Ketones NEG Urine Occult Blood SMALL Urine Nitrite POS Urine Bilirubin NEG Urine Urobilinogen LESS THAN 2.0 Urine Leukocyte Esterase SMALL Urine RBC 8 Urine WBC 6 Urine Squamous Epithelial <1 Cells Urine Amorphous Sediment RARE Urine Bacteria OCC Urine Mucus MOD Microscopic Urinalysis Comment CATH-CULTURE IND Nasal Screen MRSA (PCR) NEGATIVE Phosphorus Level 3.2 Magnesium Level 2.0 Test 08/10/16 05:05 Blood Gas Puncture Site RT RADIAL Blood Gas Patient Temperature 98.6 Blood Gas HCO3 28 Blood Gas Base Excess 3.4 Blood Gas Oxygen Saturation 96 Arterial Blood pH 7.41 Arterial Blood Partial 45 Pressure CO2 Arterial Blood Partial 104 Pressure O2 Arterial Blood Oxygen Content 13.6 Arterial Blood 1.6 Carboxyhemoglobin Arterial Blood Methemoglobin 0.8 Blood Gas Hemoglobin 10.0 Oxygen Delivery Device T-COLLAR Blood Gas Liter Flow 6 Blood Gas Inspired Oxygen 50 Date/Time Procedure Status Source Growth 08/10/16 02:45 Urine Culture Received Urine Catheterized Urine Pending Result Diagram: 08/10/16 0427 08/10/16 0427 Imaging Last Impressions Chest X-Ray 08/09/16 1819 Signed Impressions: Service Date/Time: Tuesday, August 09, 2016 18:20 - CONCLUSION: No acute disease. Zeus Wharton MD Neck CT 08/09/16 0000 Signed Impressions: Service Date/Time: Wednesday, August 10, 2016 01:54 - CONCLUSION: 1. Findings compatible with hematoma surrounding the tracheostomy site. No fistula is identified Levi Machado MD Chest CT 08/09/16 0000 Signed Impressions: Service Date/Time: Wednesday, August 10, 2016 01:58 - CONCLUSION: 1. No evidence of fistula or hematoma surrounding the tracheostomy site. 2. Bibasilar atelectasis Levi Machado MD Course Apparently, she has had some scant bloody drainage earlier this morning, but none currently. Assessment and Plan Problem List: (1) Tracheostomy complication Status: Acute (2) Glioblastoma multiforme of brain Status: Chronic Assessment and Plan I was asked to see this patient regarding possible tracheoinnominate fistula and surgical intervention. The patient has had the original cuffed trach device in since it was placed and has not required ventilator support for months. I am not sure why this wasn't changed to a Jose or other uncuffed device and reduced in size. In any event, the CT scan performed last night does not show any mediastinal inflammation or hematoma. Rather, there is a hematoma around the tracheostomy site itself suggesting an issue related to the site vs distal erosion involving the innominate artery. The device comes anterior toward the site just distal to the bifurcation of the right subclavian artery and right carotid artery. Unfortunately, this is not conclusive as there could be a very small communication not visible on CT. I discussed this process with the patient's and the surgical procedure to repair the fistula, if it indeed exists - namely a median sternotomy with ligation of the innominate artery proximally. This could result in further neurologic compromise due interruption of antegrade flow in the right carotid artery, but the incidence is rather low. Given her current functional status and brain tumor, he would not be interested in pursuing this surgery. I do recommend consulting ENT for larngoscopy, tracheoscopy, and management of the wound for any other source of bleeding given the CT findings. If the bleeding ceases, consideration of trach device downsizing or removal would allow the area to heal if her airway can be maintained. Problem Qualifiers (1) Tracheostomy complication: Qualified Code: J95.01 - Hemorrhage from tracheostomy stoma Anne Marquez MD Aug 10, 2016 11:33
--- NOTE | 2016-08-10 13:32 | HHI.CCPN ---
Subjective Remarks/Hospital Course 38 yo WF who presented to ED with reported massive hemoptysis via tracheostomy. She has a PMH of glioblastoma multiforme diagnosed in December 2014. She underwent craniectomy with partial resection by Dr. Mathew and then was subsequently treated with radiation in March 2015 and Temodar chemotherapy starting in April 2015. She had some response to chemo but it was discontinued after about a year due to an intolerance (per ). She was admitted for about a month in December/January of 2015 with status epilepticus. Seizures were difficult to control despite multiple anticonvulsants. She had bitten her tongue during seizures resulting in significant swelling and airway compromise so she could not be safely extubated. Therefore she underwent trach (01/29/[address] Jerez) and PEG. She remains nonverbal, bed bound. Trach is managed by Dr. Estes and remains in place due to concern that her baseline level of alertness may not be adequate to protect airway. states this may in part be attributed to her anticonvulsants, and there have been efforts to wean these. Tonight at around 18:30 her was repositioning her in bed and she coughed up a large amount of bright red blood that covered her clothes, legs, bedsheets. He states he had not manipulated her trach or suctioned prior to this. He states she had not been experiencing cough or fever and has never had hemoptysis before aside from some blood tinged secretions with suctioning. She had another episode of hemoptysis in the car as he drove her to the hospital. Upon arrival to ED, Dr. Hollingsworth states she had an episode of large bright red hemoptysis and she had desaturation requiring 50% trach collar. At baseline she is on room air. Trach was suctioned gently and there were some clots removed also. Dr. Hollingsworth discussed with gaggerman Dr. Brand who recommended ICU admission. She is not on anticoagulants or antiplatelets. Subjective 08/10: No active signs of bleeding overnight. Hemoglobin stable. Dr. Ralph in to see patient, discussion with has been revealed he does not want intervention for tracheal innominate fistula repair if clinically indicated secondary to the patient's current medical condition/quality of life. The patient continues on 50% trach collar, O2 sat 97%. The patient has been made alternate code status, intubation only. I discussed with Dr. Marquez, plan for ENT consult secondary to possible stoma erosion, device exchange and/or downsizing of tracheostomy. Objective Vital Signs Date Time Temp Pulse Resp B/P Pulse Ox O2 Delivery O2 Flow Rate FiO2 08/10/16 12:00 99.9 81 14 122/58 100 08/10/16 07:52 Trach Collar 6.00 08/10/16 04:00 50 Result Diagram: 08/10/16 0427 08/10/16 0427 Other Results Laboratory Tests Test 08/10/16 05:05 Blood Gas Puncture Site RT RADIAL Blood Gas Patient Temperature 98.6 Blood Gas HCO3 28 mmol/L (22-26) Blood Gas Base Excess 3.4 mmol/L (-2-2) Blood Gas Oxygen Saturation 96 % (90-100) Arterial Blood pH 7.41 (7.380-7.420) Arterial Blood Partial 45 mmHg (38-42) Pressure CO2 Arterial Blood Partial 104 mmHg Pressure O2 (61-120) Arterial Blood Oxygen Content 13.6 Vol % (12.0-20.0) Arterial Blood 1.6 % (0-4) Carboxyhemoglobin Arterial Blood Methemoglobin 0.8 % (0-2) Blood Gas Hemoglobin 10.0 G/DL (12.0-16.0) Oxygen Delivery Device T-COLLAR Blood Gas Liter Flow 6 L/M Blood Gas Inspired Oxygen 50 % Objective Remarks Temp 99.9 blood pressure 141/71 R 20 pulse 84 Sats 98% on 50% trach collar GENERAL: Thin and chronically ill-appearing female with trach who is nonverbal, contracted SKIN: Warm and dry. HEAD: Atraumatic. Normocephalic. EYES: Pupils equal and round. No scleral icterus. ENT: No nasal bleeding, no blood in oropharynx NECK: 6.[address] Cuff currently deflated. There is some dried blood within the trach inner cannula. There is some granulation tissue and superior aspect of stoma without clot or active bleeding.There is small ring of dried blood on the sides of the stoma without active bleeding. CARDIOVASCULAR: Regular rate and rhythm, sinus on the monitor. No murmurs rubs or gallops. RESPIRATORY: appears to be breathing comfortably, no accessory muscle use, CTAB without rhonchi. No wheeze or rales. GASTROINTESTINAL: Abdomen soft, non-tender, nondistended. Bowel sounds present. MUSCULOSKELETAL: Extremities without clubbing, cyanosis. Contractures of LUE and BLE. NEUROLOGICAL: Eyes open, nonverbal, spontanously moves RUE, BLE are contracted. Does not follow commands. A/P Assessment and Plan NEURO: Glioblastoma multiforme Seizure disorder Continue home medications Checked phenobarbital and dilantin levels which are therapeutic Phenobarbital 40 mg by mouth twice a day Dilantin 150 mg per tube 3 times a day Keppra 750 mg per tube twice a day Patient no longer on chemo for GBM RESP: Hemoptysis. Tracheostomy (placed 01/29/16 Dr. Jerez) Given duration of patients trach and presentation of large volume hemoptysis, tracheoinnominate fistula a possibility . Currently hemoptysis has stopped. Discussed with . Intervention for tracheoinnominate fistula would seem aggressive in this patient given her current overall condition and quality of life. Discussion with Dr. Valentine today revealed the does not want to proceed with an intervention for tracheoinnominate fistula if it was clinically indicated. The patient has been a alternate CODE STATUS, intubation only. CT chest and neck hematoma around the device. - FiO2 50% trach collar, O2 sat 97% - Morphine prn cough. -Avoid suctioning unless she has active hemoptysis that is not clearing. --Keep trach cuff inflated -Empiric abx, mucomyst/albuterol nebs. -Pulmonology consult, Dr. Brand. -[facility] ENT discussed with Dr. Marquez CV: Continue Cardizem 10 mg per tube daily Continue 0.9 NaCl at 50 mL/h Labetalol/ hydralazine as needed for systolic pressure greater than 150 GI: Dysphagia s/p PEG NPO, may need rigid bronchoscopy to evaluate trachea. Initiate tube feeds when workup completed. FEN/RENAL: Shin in place. Monitor intake and output. Monitor electrolyte and replace per ICU protocol ID: UTI Urinalysis positive leukocyte esterase, positive nitrate, few bacteria. Rocephin 1 g IV every 12 to cover UTI and for empiric community acquired respiratory coverage in setting of hemoptysis. Azithromycin 500 tube q24. HEME: Monitor CBC. Typed and crossed. ENDO: Euglycemic PROPH: SCDs for DVT prophylaxis. Hold on pharmacologic DVT prophylaxis due to hemoptysis. Protonix 40 mg IV IV daily for stress ulcer prophylaxis ACCESS: Peripheral IV's. Central line if indicated The patient's updated at bedside. Discussed CODE STATUS. He states that she would not want CPR/shocks for pulseless arrest. He does want her to receive active treatment and would be agreeable to procedures as necessary. Would be agreeable to reintubation if needed. CODE STATUS is alternate code (intubation only) Discussed with Dr. Caryl Marquez, if tracheoinnominate fistula, family requests no intervention be performed. Discussed with Dr. Meng, Gelfoam and sterile hemostats at bedside in the event of emergent packing. Discussed with ENT Dr. Shayan Beck, no active bleeding at this time plans for possible flexible bronchoscopy in the a.m. to examine oropharynx. This patient remains critically ill with one or more organ systems which are or may become a threat to life. I have spent in excess of 47 minutes discontinuously in the care and management of this patient. This time is exclusive of procedures, and includes, but is not limited to, evaluation of the patient, review of the medical record, discussions with family, consultants, nursing staff, or respiratory therapy, and documentation in the medical record. Physician Magui Green MD Aug 10, 2016 13:32
[2016-08-10] MEDS ORDERED: GELATIN 12 MM/7 MM FOAM ONE ×2 (15:11→15:56)
--- NOTE | 2016-08-10 16:21 | MB ---
cc: CATHIE BRAND M.D. DATE OF CONSULTATION: 08/10/2016 REASON FOR CONSULTATION Hemoptysis. HISTORY OF PRESENT ILLNESS The patient is a 65-year-old female who was brought to the emergency room with evidence of hemoptysis. The patient has known history of seizure disorder. She has a tracheostomy on intermediate basis. She has a history of glioblastoma multiforme for which she had a craniotomy in 2014 with subsequent radiation and chemotherapy. The patient did have bright red blood through her trachea which alarmed her when he had brought her to the emergency room. PAST MEDICAL HISTORY 1. Seizure disorder. 2. Glioblastoma multiforme ___ status post surgery and subsequent radiation and chemotherapy. 3. Tracheostomy undertaken in January, by Dr. Oliveira. 4. She has a PEG tube in place. 5. She did have a previous hysterectomy. 6. Tonsillectomy. MEDICATIONS Medications at home include - 1. Keppra. 2. Phenobarbital. 3. Cardizem. 4. Dilantin. 5. Prevacid. FAMILY HISTORY Noncontributory. SOCIAL HISTORY Does not smoke, does not drink. , lives with . PHYSICAL EXAMINATION GENERAL: The patient nonverbal with contractures, tracheostomy in place. VITAL SIGNS: Temperature 98, pulse 80, respiration 20, blood pressure 147/70. HEENT: Unremarkable. Eyes without icterus. NECK: Tracheostomy in place. CHEST: No dullness to percussion, clear to auscultation. CARDIAC: PMI not appreciated. S1, S2 audible. No murmur, no rub. ABDOMEN: Lax, positive bowel sounds. EXTREMITIES: Contractures noted. LABORATORY DATA White count 10,000, hemoglobin 11, hematocrit 33,sodium 138, potassium 3.6, BUN 21, creatinine 0.5. IMAGING CT scan of the chest without acute infiltrate. Chest x-ray was clear as well. IMPRESSION 1. Hemoptysis, minor, no acute respiratory distress. 2. Status post tracheostomy. 3. Seizure disorder. PLAN The patient is not bleeding significantly at present. The source of her bleeding is likely around her tracheostomy or where the tracheostomy does interact with the tracheal surfaces. She has been seen by thoracic surgery, no surgical intervention required. ENT to see the patient and inspect her tracheostomy and the stoma and surrounding area. Bronchoscopy is not indicated at this time. It would be a good idea to let the bleeding settle down at present and evaluate the upper airway which is the most likely source of the hemoptysis, if need be further evaluation will be undertaken as needed. I do thank you for asking me to partake in Mrs. Rene's care. Cathie Brand MD WWW/CHARLENE /2:16 PM /3:34 PM
--- NOTE | 2016-08-10 16:58 | PD.PROCEDR ---
Procedure Note Procedure Diagnosis: Acute Renal failure Indications: Acute renal failure Consent: Obtained from family Anesthesia: see MAR Description of the Procedure: The patient was placed in the supine, mild- Trendelenburg position. The area was prepped and draped sterilely. A 19g needle was inserted under negative pressure aspiration and dark venous blood was obtained. A guidewire was inserted easily without resistance. A small incision was made using a #11 blade. Using a modified Seldinger technique, the dilator and the Vascular catheter were advanced over the guidewire without resistance. All ports were aspirated and flushed, and had brisk blood return. The line was secured at the skin using 2-0 silk interrupted sutures. A Biopatch and Transparent sterile dressing were applied. There were no immediate complications noted. There was minimal EBL. The patient tolerated the procedure well. Ultrasound Guidance: Ultrasound guidance was used to identify the left IJ. The vascular anatomy was normal. The vessel was cannulated under direct, real-time ultrasound visualization. After placement of the guidewire, confirmation of the guidewire in the lumen of the vessel was made using ultrasound visualization, before dilation of the tract. A Chest x-ray has been ordered. I personally performed the procedure. Magui Montaño MD Aug 10, 2016 16:58
--- NOTE | 2016-08-10 17:02 | EKG ---
Date Performed: 08/09/2016 Time Performed: 18:41:41 PTAGE: 65 years EKG: Technically poor tracing with marked baseline artifact Otherwise within normal limits Bob red to prior tracing no significant change, other than baseline artifact NORMAL ECG PREVIOUS TRACING : 01/14/2016 19.53 DOCTOR: Kevin Almonte Interpretating Date/Time 08/10/2016 17:00:32
[2016-08-11] VITALS (15 sets, daily range): BP systolic 131–160; BP diastolic 61–68; PULSE 81–96; RESP 7–20; TEMP 98.3–99.1; O2SAT 93–99
[2016-08-11] MEDS: RESP: ACETYLCYSTEINE 20% 30 ML NEB NEB SCH ×4 (03:59→20:10)
[2016-08-11] MEDS: RESP: ALBUTEROL 2.5 MG/3 ML NEB (SCH) INH ×4 (04:00→20:10)
[2016-08-11] MEDS: CHLORHEXIDINE GLUCONATE 2 % 1 PACK (2 CLOTHS) TOP SCH (04:00)
[2016-08-11] MEDS: PHENYTOIN SUSP 100 MG/4 ML CUP PEG SCH ×3 (06:41→19:25)
[2016-08-11] MEDS: cefTRIAXone INJ 1,000 MG in SODIUM CHLORIDE 0.9% INJ 100 ML IV SCH ×2 (06:41→13:21)
[2016-08-11 07:51] LABS: PROTHROMBIN TIME - PATIENT 11.2 SEC (9.8-11.6)
[2016-08-11 07:59] LABS: MEAN CELL VOLUME 92.3 FL (80.0-100.0); MEAN CORPUSCULAR HEMOGLOBIN 30.3 PG (27.0-34.0); MEAN CORPUSCULAR HGB CONC 32.8 % (32.0-36.0); PLATELET COUNT 240 TH/MM3 (150-450); RED BLOOD COUNT 3.36 MIL/MM3 (4.00-5.30); RED CELL DISTRIBUTION WIDTH 18.6 % (11.6-17.2); REVIEW FLAG FINAL; WHITE BLOOD COUNT 10.2 TH/MM3 (4.0-11.0)
[2016-08-11 08:22] LABS: MAGNESIUM 1.9 MG/DL (1.5-2.5); POTASSIUM 3.1 MEQ/L (3.5-5.1)
[2016-08-11] MEDS: SODIUM CHLORIDE 0.9% FLUSH 5 ML FLUSH IV FLUSH SCH ×2 (09:00→19:22)
[2016-08-11] MEDS: PHENobarbital ELIX 20 MG/5 ML CUP PO SCH ×2 (09:13→19:22)
[2016-08-11] MEDS: levETIRAcetam 500 MG/5 ML UDC PEG SCH ×2 (09:13→19:22)
[2016-08-11] MEDS: DILTIAZEM HCL 30 MG TAB PEG SCH (09:14)
[2016-08-11] MEDS: AZITHROMYCIN SUSP 200 MG/5 ML 15 ML BTL TUBE SCH (09:14)
[2016-08-11] MEDS: PANTOPRAZOLE SODIUM 40 MG VIAL IV SCH (09:14)
--- NOTE | 2016-08-11 10:39 | MB ---
cc: SHAYAN CHAPMAN MD DATE OF CONSULTATION: 08/11/2016 REASON FOR CONSULTATION: Hemoptysis. HISTORY OF PRESENT ILLNESS: The patient is a 65 year-old female brought to the emergency room with recent evidence of hemoptysis through her tracheostomy site. The patient has a very complicated medical history. She has glioblastoma multiforme with craniotomy in 2006, treated with radiation and chemotherapy, subsequently developed a seizure disorder and was ultimately trache'd [place] [address] Oliveira for protection of her airway. Her noticed on Friday that she had a significant amount of blood coming from the trache site and some swelling around the trache site, and was brought to the emergency room for this reason. Currently her said she has not had any bleeding at least not for the last 24 hours. She has occasional bloody discharge from the tracheostomy suctioning but no significant bleeding at this time. PAST MEDICAL HISTORY 1. Seizure disorder. 2. Glioblastoma multiforme treated with radiation, chemotherapy and surgery. 3. Tracheostomy 2015 4. PEG tube 5. Previous tonsillectomy. MEDICATIONS Please see EMR. SOCIAL HISTORY She lives with her . She does not smoke or drink. PHYSICAL EXAMINATION She is afebrile. Vital signs: stable. HEENT: Patient's oral cavity is dry. No lesions noted. Mucosa is very dry. Oropharynx shows significant amount of mucous. Flexible laryngoscopy performed at bedside shows the oropharynx and hypopharynx, and supraglottis all without lesions or ulcerations. No evidence of bleeding noted. No evidence of masses or ulcerations. I am able to visualize to the glottis, there is no lesions noted to the glottis. No evidence of bleeding sites. Her nasal exam reveals no evidence of recent epistaxis. Neck: Reveals tracheostomy is in place. There is some swelling around the tracheostomy site. The flexible scope passed through the tracheostomy shows the trachea to have some dry mucosa and some dry old blood, however, the augustin is clear. There is no evidence of bloody mucosa down at the augustin. ASSESSMENT/PLAN Patient with some hemoptysis that seems to be controlled at this point. I do not see any evidence for the hemoptysis above her larynx or in her upper airway. The most likely site of bleeding was at the tracheostomy site. Will defer that care to the surgeon who placed it but at this time I see no evidence of upper airway bleeding. Also her lower airway seems to be without significant amount of blood but I will defer for further bronchoscopy to pulmonary should they deem it necessary. From an ENT standpoint, I do not see a significant cause for hemoptysis and we will have to defer to other specialties for other possible causes or reasoning for it, but at this time it does seem to be very well controlled and she is in no acute distress at this time. The patient will continued to be monitored by the wind tunnel engineer and further treatment decisions will be made in conjunction with other services. Should you have anymore questions please do not hesitate to reconsult. Shayan Chapman AT/NANY /9:34 AM /9:58 AM
--- NOTE | 2016-08-11 13:04 | HHI.PR ---
Subjective Remarks NO SOB MINIMAL HEMOPTYSIS Objective Vital Signs Date Time Temp Pulse Resp B/P Pulse Ox O2 Delivery O2 Flow Rate FiO2 08/11/16 12:00 98.8 88 20 131/63 96 08/11/16 12:00 88 08/11/16 10:00 88 08/11/16 08:20 94 T-piece 6.00 21 08/11/16 08:00 88 08/11/16 08:00 98.7 89 20 148/67 96 08/11/16 06:00 88 08/11/16 04:00 98.7 89 20 160/67 96 08/11/16 04:00 89 08/11/16 02:00 84 08/11/16 00:00 98.9 88 12 141/68 99 08/11/16 00:00 88 08/10/16 22:00 92 08/10/16 20:19 95 T-piece 21 08/10/16 20:00 100.2 96 28 127/63 100 08/10/16 20:00 96 08/10/16 18:00 89 08/10/16 16:00 99.0 88 14 120/63 100 08/10/16 16:00 89 08/10/16 14:00 87 I/O 08/10/16 08/10/16 08/10/16 08/11/16 08/11/16 08/11/16 07:00 15:00 23:00 07:00 15:00 23:00 Intake Total 289 ml 300 ml 819 ml Output Total 651 ml 350 ml 1250 ml Balance -362 ml -50 ml -431 ml Intake IV Total 289 ml 300 ml 759 ml Other 60 ml Output Urine Total 650 ml 350 ml 1250 ml Stool Total 1 ml Result Diagram: 08/11/16 0700 08/11/16 0700 Objective Remarks GENERAL: SKIN: Warm and dry. HEAD: Atraumatic. Normocephalic. EYES: Pupils equal and round. No scleral icterus. No injection or drainage. ENT: No nasal bleeding or discharge. Mucous membranes pink and moist. NECK: Trachea midline. No JVD. CARDIOVASCULAR: Regular rate and rhythm. RESPIRATORY: No accessory muscle use. Clear to auscultation. Breath sounds equal bilaterally. GASTROINTESTINAL: Abdomen soft, non-tender, nondistended. Hepatic and splenic margins not palpable. MUSCULOSKELETAL: Extremities without clubbing, cyanosis, or edema. No obvious deformities. NEUROLOGICAL: Awake and alert. No obvious cranial nerve deficits. Motor grossly within normal limits. Five out of 5 muscle strength in the arms and legs. Normal speech. PSYCHIATRIC: Appropriate mood and affect; insight and judgment normal. Assessment and Plan Assessment and Plan RESPIRATORY FAILURE S/P TRACHEOSTOMY SIZURE DISORDER PATIENTS HEMOPTYSIS FOR THE MOST PART RESOLVED PLAN O2 NEEDED PULM TOILET Cathie Brand MD Aug 11, 2016 13:04
[2016-08-11] MEDS: SODIUM CHLOR 0.9% 1000 ML INJ 1,000 ML IV SCH (13:21)
--- NOTE | 2016-08-11 17:57 | HHI.CCPN ---
Subjective Remarks/Hospital Course 38 yo WF who presented to ED with reported massive hemoptysis via tracheostomy. She has a PMH of glioblastoma multiforme diagnosed in December 2014. She underwent craniectomy with partial resection by Dr. Mathew and then was subsequently treated with radiation in March 2015 and Temodar chemotherapy starting in April 2015. She had some response to chemo but it was discontinued after about a year due to an intolerance (per ). She was admitted for about a month in December/January of 2015 with status epilepticus. Seizures were difficult to control despite multiple anticonvulsants. She had bitten her tongue during seizures resulting in significant swelling and airway compromise so she could not be safely extubated. Therefore she underwent trach (01/29/[address] Jerez) and PEG. She remains nonverbal, bed bound. Trach is managed by Dr. Estes and remains in place due to concern that her baseline level of alertness may not be adequate to protect airway. states this may in part be attributed to her anticonvulsants, and there have been efforts to wean these. Tonight at around 18:30 her was repositioning her in bed and she coughed up a large amount of bright red blood that covered her clothes, legs, bedsheets. He states he had not manipulated her trach or suctioned prior to this. He states she had not been experiencing cough or fever and has never had hemoptysis before aside from some blood tinged secretions with suctioning. She had another episode of hemoptysis in the car as he drove her to the hospital. Upon arrival to ED, Dr. Hollingsworth states she had an episode of large bright red hemoptysis and she had desaturation requiring 50% trach collar. At baseline she is on room air. Trach was suctioned gently and there were some clots removed also. Dr. Hollingsworth discussed with infrastructure engineer Dr. Brand who recommended ICU admission. She is not on anticoagulants or antiplatelets. Subjective 08/10: No active signs of bleeding overnight. Hemoglobin stable. Dr. Ralph in to see patient, discussion with has been revealed he does not want intervention for tracheal innominate fistula repair if clinically indicated secondary to the patient's current medical condition/quality of life. The patient continues on 50% trach collar, O2 sat 97%. The patient has been made alternate code status, intubation only. I discussed with Dr. Marquez, plan for ENT consult secondary to possible stoma erosion, device exchange and/or downsizing of tracheostomy. 08/11: No acute issues overnight. ENT Dr. Shayan Beck in this a.m. flexible bronchoscopy revealed no oropharyngeal bleeding. Hemoglobin stable. Objective Vital Signs Date Time Temp Pulse Resp B/P Pulse Ox O2 Delivery O2 Flow Rate FiO2 08/11/16 16:09 98.3 81 20 137/63 96 08/11/16 08:20 T-piece 6.00 21 Intake and Output 08/10/16 08/10/16 08/11/16 08:00 16:00 00:00 Intake Total 289 ml 300 ml 504 ml Output Total 651 ml 350 ml 750 ml Balance -362 ml -50 ml -246 ml Result Diagram: 08/11/16 0708/11/16 0700 Objective Remarks Temp 99.9 blood pressure 141/71 R 20 pulse 84 Sats 98% on 50% trach collar GENERAL: Thin and chronically ill-appearing female with trach who is nonverbal, contracted SKIN: Warm and dry. HEAD: Atraumatic. Normocephalic. EYES: Pupils equal and round. No scleral icterus. ENT: No nasal bleeding, no blood in oropharynx NECK: 6.[address] Cuff currently deflated. There is some dried blood within the trach inner cannula. There is some granulation tissue and superior aspect of stoma without clot or active bleeding.There is small ring of dried blood on the sides of the stoma without active bleeding. CARDIOVASCULAR: Regular rate and rhythm, sinus on the monitor. No murmurs rubs or gallops. RESPIRATORY: appears to be breathing comfortably, no accessory muscle use, CTAB without rhonchi. No wheeze or rales. GASTROINTESTINAL: Abdomen soft, non-tender, nondistended. Bowel sounds present. MUSCULOSKELETAL: Extremities without clubbing, cyanosis. Contractures of LUE and BLE. NEUROLOGICAL: Eyes open, nonverbal, spontanously moves RUE, BLE are contracted. Does not follow commands. Urinary Catheter: Yes A/P Assessment and Plan NEURO: Glioblastoma multiforme Seizure disorder Continue home medications Checked phenobarbital and dilantin levels which are therapeutic Phenobarbital 40 mg by mouth twice a day Dilantin 150 mg per tube 3 times a day Keppra 750 mg per tube twice a day Patient no longer on chemo for GBM RESP: Hemoptysis. Tracheostomy (placed 01/29/16 Dr. Jerez) Given duration of patients trach and presentation of large volume hemoptysis, tracheoinnominate fistula a possibility . Currently hemoptysis has stopped. Discussed with . Intervention for tracheoinnominate fistula would seem aggressive in this patient given her current overall condition and quality of life. Discussion with Dr. Valentine today revealed the does not want to proceed with an intervention for tracheoinnominate fistula if it was clinically indicated. The patient has been a alternate CODE STATUS, intubation only. CT chest and neck hematoma around the device. - FiO2 50% trach collar, O2 sat 97% - Morphine prn cough. -Avoid suctioning unless she has active hemoptysis that is not clearing. --Keep trach cuff inflated -Empiric abx, mucomyst/albuterol nebs. -Pulmonology consult, Dr. Brand. -Consult ENT, Dr. Shayan Beck-flexible bronchoscopy performed this a.m., see note. No oropharyngeal bleeding. CV: Continue Cardizem 10 mg per tube daily Continue 0.9 NaCl at 50 mL/h Labetalol/ hydralazine as needed for systolic pressure greater than 150 GI: Dysphagia s/p PEG NPO, may need rigid bronchoscopy to evaluate trachea. Initiate tube feeds when workup completed. FEN/RENAL: Shin in place. Monitor intake and output. Monitor electrolyte and replace per ICU protocol ID: UTI Urinalysis positive leukocyte esterase, positive nitrate, few bacteria. Rocephin 1 g IV every 12 to cover UTI and for empiric community acquired respiratory coverage in setting of hemoptysis. Azithromycin 500 tube q24. HEME: Monitor CBC. Typed and crossed. ENDO: Euglycemic PROPH: SCDs for DVT prophylaxis. Hold on pharmacologic DVT prophylaxis due to hemoptysis. Protonix 40 mg IV IV daily for stress ulcer prophylaxis ACCESS: Peripheral IV's. Central line if indicated The patient's updated at bedside. Discussed CODE STATUS. He states that she would not want CPR/shocks for pulseless arrest. He does want her to receive active treatment and would be agreeable to procedures as necessary. Would be agreeable to reintubation if needed. CODE STATUS is alternate code (intubation only) Discussed with Dr. Caryl Marquez, if tracheoinnominate fistula, family requests no intervention be performed. Discussed with Dr. Meng, Gelfoam and sterile hemostats at bedside in the event of emergent packing, the patient has not bled since admission. Discussed with ENT Dr. Shayan Beck, flexible bronchoscopy to examine oropharynx, bleeding noted. Level 2 Dispo: Plan to to hospitalist Physician Magui Green MD Aug 11, 2016 17:57
[2016-08-11] MEDS ORDERED: MAGNESIUM OXIDE 400 MG TAB PO PRN (19:00)
[2016-08-11] MEDS ORDERED: POTASSIUM PHOSPHATE MONOBASIC 500 MG TAB PO/TUBE PRN (19:00)
[2016-08-11] MEDS ORDERED: POTASSIUM PHOSPHATE INJ 30 MMOL in SODIUM CHLOR 0.9% 250 ML INJ 250 ML IV PRN (19:00)
[2016-08-11] MEDS ORDERED: POTASSIUM CHLOR 20 MEQ PREMIX 100 ML IV PRN ×2 (19:00)
[2016-08-11] MEDS ORDERED: POTASSIUM PHOSPHATE MONOBASIC 500 MG TAB PO PRN (19:00)
[2016-08-11] MEDS ORDERED: POTASSIUM CL 40 MEQ/30 ML LIQ UDC PO/TUBE PRN ×2 (19:00)
[2016-08-11] MEDS ORDERED: MAGNESIUM SULFATE INJ 2 GM in SODIUM CHLORIDE 0.9% INJ 96 ML IV PRN (19:00)
[2016-08-11] MEDS ORDERED: POTASSIUM CHLOR 40 MEQ PREMIX 100 ML IV PRN ×2 (19:00)
[2016-08-11] MEDS ORDERED: MAGNESIUM SULFATE INJ 4 GM in SODIUM CHLORIDE 0.9% INJ 92 ML IV PRN (19:00)
[2016-08-11] MEDS ORDERED: SODIUM PHOSPHATE INJ 30 MMOL in SODIUM CHLOR 0.9% 250 ML INJ 240 ML IV PRN (19:00)
[2016-08-12] VITALS (11 sets, daily range): BP systolic 110–146; BP diastolic 57–76; PULSE 71–98; RESP 14–26; TEMP 99–100; O2SAT 93–100
[2016-08-12] MEDS: cefTRIAXone INJ 1,000 MG in SODIUM CHLORIDE 0.9% INJ 100 ML IV SCH ×2 (02:03→18:24)
[2016-08-12] MEDS: RESP: ALBUTEROL 2.5 MG/3 ML NEB (SCH) INH ×4 (03:47→20:52)
[2016-08-12] MEDS: CHLORHEXIDINE GLUCONATE 2 % 1 PACK (2 CLOTHS) TOP SCH (04:00)
[2016-08-12] MEDS: PHENYTOIN SUSP 100 MG/4 ML CUP PEG SCH ×3 (05:25→22:19)
[2016-08-12 07:06] LABS: AUTOMATED NEUTROPHIL # 7.7 TH/MM3 (1.8-7.7); BASOPHIL % 0.3 % (0.0-2.0); EOSINOPHIL # 0.4 TH/MM3 (0-0.4); EOSINOPHIL % 3.5 % (0.0-4.0); HEMATOCRIT 32.4 % (35.0-46.0); HEMO FLAGS DIFF FINAL; LYMPH % 12.4 % (9.0-44.0); LYMPHOCYTE # 1.3 TH/MM3 (1.0-4.8); MEAN CELL VOLUME 93.5 FL (80.0-100.0); MEAN CORPUSCULAR HEMOGLOBIN 30.2 PG (27.0-34.0); MEAN CORPUSCULAR HGB CONC 32.3 % (32.0-36.0); MONO % 11.1 % (0.0-8.0); NEUT % 72.7 % (16.0-70.0); PLATELET COUNT 239 TH/MM3 (150-450); RED BLOOD COUNT 3.47 MIL/MM3 (4.00-5.30); RED CELL DISTRIBUTION WIDTH 18.1 % (11.6-17.2); WHITE BLOOD COUNT 10.7 TH/MM3 (4.0-11.0)
[2016-08-12 07:48] LABS: ALKALINE PHOSPHATASE 248 U/L (45-117); ALT (GPT) 123 U/L (10-53); ANION GAP 10 MEQ/L (5-15); AST (GOT) 54 U/L (15-37); BICARBONATE 26.2 MEQ/L (21.0-32.0); BLOOD UREA NITROGEN 6 MG/DL (7-18); CHLORIDE 99 MEQ/L (98-107); GLOMERULAR FILTRATION RATE 182 ML/MIN (>89); POTASSIUM 3.6 MEQ/L (3.5-5.1); SODIUM (NA) 135 MEQ/L (136-145); TOTAL BILIRUBIN ADULT 0.3 MG/DL (0.2-1.0)
[2016-08-12] MEDS: PANTOPRAZOLE SODIUM 40 MG VIAL IV SCH (09:10)
[2016-08-12] MEDS: DILTIAZEM HCL 30 MG TAB PEG SCH (09:11)
[2016-08-12] MEDS: PHENobarbital ELIX 20 MG/5 ML CUP PO SCH ×2 (09:13→20:54)
[2016-08-12] MEDS: levETIRAcetam 500 MG/5 ML UDC PEG SCH ×2 (09:13→20:54)
[2016-08-12] MEDS: SODIUM CHLORIDE 0.9% FLUSH 5 ML FLUSH IV FLUSH SCH ×2 (09:14→20:53)
[2016-08-12] MEDS: AZITHROMYCIN SUSP 200 MG/5 ML 15 ML BTL TUBE SCH (09:14)
--- NOTE | 2016-08-12 10:23 | HHI.PR ---
Subjective Remarks pt nonverbal. comfortable. at bedside Objective Vitals trach. eyes closed legs flexed. mendenhall. peg. sleeping. Vital Signs Date Time Temp Pulse Resp B/P Pulse Ox O2 Delivery O2 Flow Rate FiO2 08/12/16 10:16 98 Trach Collar 21 08/12/16 08:00 99.5 83 21 120/59 98 08/12/16 06:00 81 08/12/16 04:00 99.1 83 26 146/76 100 08/12/16 04:00 83 08/12/16 02:00 82 08/12/16 00:00 100.0 85 22 142/68 98 08/12/16 00:00 85 08/11/16 22:00 96 08/11/16 20:16 94 T-piece 21 08/11/16 20:00 93 08/11/16 20:00 99.1 93 7 132/61 93 08/11/16 18:00 88 08/11/16 16:09 98.3 81 20 137/63 96 08/11/16 16:00 88 08/11/16 14:00 88 08/11/16 12:00 98.8 88 20 131/63 96 08/11/16 12:00 88 08/11/16 08/11/16 08/12/16 15:00 23:00 07:00 Intake Total 325 ml 1330 ml Output Total 325 ml 1400 ml Balance 0 ml -70 ml Intake IV Total 325 ml 1330 ml Output Urine Total 325 ml 1400 ml Result Diagram: 08/12/16 0636 08/12/16 0638 A/P Problem List: (1) Tracheostomy complication Status: Acute Plan: Pt with glioblastoma multiforme and secondary seizure d/o has been to week to undergo further chemo. total care at home per and on 24hr/day tube feeding. Presented with hemoptysis. Pt seen by both CTS and ENT and apparently at this point no active bleeding and seems like most likely scenario is erosion at the trach site and not a fistula. Long talk with will resume tube feeding cont AED's. He is hoping that in the future her neurologist might find a combination that would cause less sedation. He is awaiting Dr Estes to evaluate her and decide if best course of action is to keep current trach in place and not disturb the site vs downsizing. (2) Glioblastoma multiforme of brain Status: Chronic Plan: has been to week to undergo further rx. (3) Hemoptysis Status: Acute Plan: see above (4) Seizure Status: Chronic Plan: cont her 3 AEDs (5) UTI (urinary tract infection) Status: Acute Plan: ecoli. on abx. Problem Qualifiers (1) Tracheostomy complication: Qualified Code: J95.01 - Hemorrhage from tracheostomy stoma Kevin Pandey MD Aug 12, 2016 10:23
[2016-08-12] MEDS: SODIUM CHLOR 0.9% 1000 ML INJ 1,000 ML IV SCH (18:24)
[2016-08-13] VITALS (7 sets, daily range): BP systolic 105–121; BP diastolic 54–58; PULSE 73–88; RESP 18–22; TEMP 99–99.2; O2SAT 93–100
[2016-08-13] MEDS: RESP: ALBUTEROL 2.5 MG/3 ML NEB (SCH) INH ×2 (02:25→08:58)
[2016-08-13] MEDS: cefTRIAXone INJ 1,000 MG in SODIUM CHLORIDE 0.9% INJ 100 ML IV SCH (02:32)
[2016-08-13] MEDS: CHLORHEXIDINE GLUCONATE 2 % 1 PACK (2 CLOTHS) TOP SCH (02:32)
[2016-08-13] MEDS: PHENYTOIN SUSP 100 MG/4 ML CUP PEG SCH (06:15)
[2016-08-13] MEDS: PHENobarbital ELIX 20 MG/5 ML CUP PO SCH (08:50)
[2016-08-13] MEDS: PANTOPRAZOLE SODIUM 40 MG VIAL IV SCH (08:50)
[2016-08-13] MEDS: levETIRAcetam 500 MG/5 ML UDC PEG SCH (08:50)
[2016-08-13] MEDS: DILTIAZEM HCL 30 MG TAB PEG SCH (08:51)
[2016-08-13] MEDS: SODIUM CHLORIDE 0.9% FLUSH 5 ML FLUSH IV FLUSH SCH (08:51)
--- NOTE | 2016-08-13 09:17 | HHI.PR ---
Subjective Remarks no events overnight. no bleeding reported. Objective Vitals eyes open nad trach site not bleeding heart reg lung cta abd s/nt/peg ext no edema mendenhall Vital Signs Date Time Temp Pulse Resp B/P Pulse Ox O2 Delivery O2 Flow Rate FiO2 08/13/16 08:58 100 Trach Collar 21 08/13/16 06:00 81 08/13/16 04:00 87 08/13/16 04:00 99.0 88 21 121/58 94 08/13/16 02:00 73 08/13/16 00:00 75 08/13/16 00:00 99.2 75 22 105/54 93 08/12/16 22:00 71 08/12/16 20:49 94 Trach Collar 6.00 21 08/12/16 20:00 99.0 84 22 110/57 93 08/12/16 20:00 84 08/12/16 16:00 99.9 98 25 127/58 98 08/12/16 12:00 99.6 85 14 119/61 93 08/12/16 10:16 98 Trach Collar 21 08/12/16 08/12/16 08/13/16 15:00 23:00 07:00 Intake Total 402 ml 972 ml 546 ml Output Total 300 ml 250 ml 250 ml Balance 102 ml 722 ml 296 ml Intake IV Total 402 ml 830 ml 402 ml Tube Feeding 82 ml 84 ml Other 60 ml 60 ml Output Urine Total 300 ml 250 ml 250 ml # Bowel Movements 0 0 0 Result Diagram: 08/12/16 0636 08/12/16 0638 A/P Problem List: (1) Tracheostomy complication Status: Acute Plan: Pt with glioblastoma multiforme and secondary seizure d/o has been to week to undergo further chemo. total care at home per and on 24hr/day tube feeding. Presented with hemoptysis. Pt seen by both CTS and ENT and apparently at this point no active bleeding and seems like most likely scenario is erosion at the trach site and not a fistula. Long talk with will resume tube feeding cont AED's. He is hoping that in the future her neurologist might find a combination that would cause less sedation. discussed with dr Estes. no downsizing now. ok to d/c and f/u clinic. d/c home. (2) Glioblastoma multiforme of brain Status: Chronic Plan: has been to week to undergo further rx. (3) Hemoptysis Status: Acute Plan: see above (4) Seizure Status: Chronic Plan: cont her 3 AEDs (5) UTI (urinary tract infection) Status: Acute Plan: ecoli. on abx. Problem Qualifiers (1) Tracheostomy complication: Qualified Code: J95.01 - Hemorrhage from tracheostomy stoma Kevin Pandey MD Aug 13, 2016 09:17
--- NOTE | 2016-08-13 09:18 | HHI.DCPOC ---
Discharge Care Plan Diagnosis: (1) Hemoptysis (2) Tracheostomy complication (3) Glioblastoma (4) Seizure Goals to Promote Your Health * To prevent worsening of your condition and complications * To maintain your health at the optimal level Directions to Meet Your Goals Take your medications as prescribed Follow your dietary instruction Follow activity as directed Keep your appointments as scheduled Take your immunizations and boosters as scheduled If your symptoms worsen call your PCP, if no PCP go to Urgent Care Center or Emergency Room Smoking is Dangerous to Your Health. Avoid second hand smoke Call the 24-hour hour crisis hotline for domestic abuse at Kevin Pandey MD Aug 13, 2016 09:18
--- NOTE | 2016-08-13 09:31 | HHI.FF ---
Face to Face Verification Diagnosis: (1) Glioblastoma (2) Seizure (3) Hemoptysis (4) Tracheostomy complication Physical Therapy Order: Evaluate and Treat Home Health Nursing Order: Signs/symptoms of disease process Nursing assessment with vital signs I have seen patient Damaris Rene on 08/13/16. My clinical findings support the need for the requested home health care services because: Deconditioned w/ increased weakness Limited ability to care for self I certify that my clinical findings support that this patient is homebound because: Impaired cognitive ability/safety Need for psychosocial assistance Kevin Pandey MD Aug 13, 2016 09:31
--- NOTE | 2016-08-13 10:49 | HHI.PR ---
Subjective Remarks 65 YOWF with h/o GBM, Ch RF,Trach Admitted with Hemoptysis Seen by ENT no More hemoptysis anxious to take her home Objective Vital Signs Vital Signs Date Time Temp Pulse Resp B/P Pulse Ox O2 Delivery O2 Flow Rate FiO2 08/13/16 10:00 84 08/13/16 08:58 100 Trach Collar 21 08/13/16 08:00 82 08/13/16 06:00 81 08/13/16 04:00 87 08/13/16 04:00 99.0 88 21 121/58 94 08/13/16 02:00 73 08/13/16 00:00 75 08/13/16 00:00 99.2 75 22 105/54 93 08/12/16 22:00 71 08/12/16 20:49 94 Trach Collar 6.00 21 08/12/16 20:00 99.0 84 22 110/57 93 08/12/16 20:00 84 08/12/16 16:00 99.9 98 25 127/58 98 08/12/16 12:00 99.6 85 14 119/61 93 I/O 08/12/16 08/12/16 08/12/16 08/13/16 08/13/16 08/13/16 07:00 15:00 23:00 07:00 15:00 23:00 Intake Total 1330 ml 402 ml 972 ml 546 ml Output Total 1400 ml 300 ml 250 ml 250 ml Balance -70 ml 102 ml 722 ml 296 ml Intake IV Total 1330 ml 402 ml 830 ml 402 ml Tube Feeding 82 ml 84 ml Other 60 ml 60 ml Output Urine Total 1400 ml 300 ml 250 ml 250 ml # Bowel Movements 0 0 0 Result Diagram: 08/12/16 0636 08/12/16 0638 Objective Remarks GENERAL: MBMN female,NAD SKIN: Warm and dry. HEAD: Normocephalic. EYES: No scleral icterus. No injection or drainage. NECK: Supple, trachea midline. No JVD or lymphadenopathy. has trach CARDIOVASCULAR: Regular rate and rhythm without murmurs, gallops, or rubs. RESPIRATORY: Breath sounds equal bilaterally. No accessory muscle use. GASTROINTESTINAL: Abdomen soft, non-tender, nondistended. Has PEG tube MUSCULOSKELETAL: No cyanosis, or edema. BACK: Nontender without obvious deformity. No CVA tenderness. A/P Assessment and Plan Ch Resp Failure Chronic trach Hemoptysis resolved SZ disorder PLAN: Trach collar Humidified air DW Stable from pulm standpoint to dc Gulshan Estes MD Aug 13, 2016 10:49
--- NOTE | 2016-09-19 20:32 | HHI.DS ---
Discharge Summary Admission Date Aug 09, 2016 at 18:49 Discharge Date: Aug 13, 2016 Admitting Diagnosis hemoptysis other (1) Tracheostomy complication Diagnosis: Principal (2) Glioblastoma multiforme of brain Diagnosis: Secondary (3) Hemoptysis Diagnosis: Principal (4) Seizure Diagnosis: Secondary (5) UTI (urinary tract infection) Diagnosis: Secondary Hospital Course Pt with glioblastoma multiforme and secondary seizure d/o has been to week to undergo further chemo. total care at home per and on 24hr/day tube feeding. Presented with hemoptysis. Pt seen by both CTS and ENT and apparently at this point no active bleeding and seems like most likely scenario is erosion at the trach site and not a fistula. But a fistula from innominate was considered but not porven. Long talk with will resume tube feeding cont AED's. He is hoping that in the future her neurologist might find a combination that would cause less sedation. discussed with dr Estes. no downsizing now. ok to d/c and f/u clinic. d/c home. Pt Condition on Discharge: Stable Discharge Disposition: Disch w/ Home Health Serv Discharge Instructions DIET: Follow Instructions for: On Tube Feeding Additional Diet Instructions: jevity 1.5 54ml/hr Activities you can perform: Regular-No Restrictions Follow up Referrals: Neurology - 2 Weeks with Trinidad Fonseca MD Pulmonology - 10 Days with Gulshan Estes MD Continued Medications: Diltiazem (Cardizem) 30 Mg Tab 10 MG PEG DAILY Angina #120 Ref 0 TAB Lansoprazole ODT (Prevacid Solutab ODT) 30 Mg Tab 30 MG G-TUBE DAILY Mix with 4 ml water before giving via tube. Ulcer Prevention #30 Ref 0 TAB Levetiracetam Liq (Keppra Liq) 500 Mg/5 Ml Soln 7.5 ML PEG BID Control Seizures #300 Ref 0 ML Phenobarbital Liq (Phenobarbital Liq) 20 Mg/5 Ml Elix 10 ML PEG BID Control Seizures #600 Ref 0 ML Phenytoin Liq (Dilantin-125 Liq) 125 Mg/5 Ml Susp 6 ML PEG TID Control Seizures #237 Ref 0 ML Kevin Pandey MD Sep 19, 2016 20:32
== END 2016-08-13 11:06 | disposition home health service (06) | DRG 206 ==
LOC: NEPC 18:05 → NEDA 18:49 → HIMN 08-10 02:10
PROVIDERS: ADMIT Emergency Medicine; ATTEND Emergency Medicine
PROC: 05HN33Z Insertion of Infusion Device into Left Internal Jugular Vein, Percutaneous Approach (ICD-10-PCS; principal; 2016-08-10)
DX: J95.01 Hemorrhage from tracheostomy stoma (principal); R64 Cachexia; N17.9 Acute kidney failure, unspecified; J96.10 Chronic respiratory failure, unspecified whether with hypoxia or hypercapnia; R04.2 Hemoptysis; N39.0 Urinary tract infection, site not specified; R13.10 Dysphagia, unspecified; G40.909 Epilepsy, unspecified, not intractable, without status epilepticus; I10 Essential (primary) hypertension; K21.9 Gastro-esophageal reflux disease without esophagitis; G43.909 Migraine, unspecified, not intractable, without status migrainosus; Z85.841 Personal history of malignant neoplasm of brain; Z92.3 Personal history of irradiation; Z92.21 Personal history of antineoplastic chemotherapy; Z93.1 Gastrostomy status; Z74.01 Bed confinement status; B96.20 Unspecified Escherichia coli [E. coli] as the cause of diseases classified elsewhere
CPT/HCPCS: 36600; 70491; 71010; 71260; 80048; 80053; 80184; 80185; 81001; 82805; 83735; 84100; 85025; 85027; 85610; 85730; 86077; 86850; 86870; 86900; 86901; 86902; 86920; 86922; 87077; 87086; 87186; 87641; 93005; 94640; 94664; C9113; J0696; J2270; J3480; J7030; J7608; J7613; Q9967

== ENCOUNTER 2016-08-15 03:46 | Inpatient (IN) | payer OTHER ==
[2016-08-15] VITALS (12 sets, daily range): BP systolic 55–168; BP diastolic 38–88; PULSE 90–107; RESP 14–20; TEMP 99–99.7; O2SAT 92–100
[~2016-08-15 03:46] MED LIST changes: -CARD240C6 PO; +DILA125S PEG; +DILT31TA PEG; -ENOX40P SQ; -LANSO30 NG; +LEVE500S PEG; -LEVE500S TUBE; -PHEN100C PEG; +PHEN20EL3 PEG; -PHEN20S PEG; +PREV30TA3 G-TUBE; -VANC500 PEG
--- NOTE | 2016-08-15 04:05 | PD ---
HPI Chief Complaint: bleeding Time Seen by Provider: 03:52 Travel History International Travel<30 days: No Contact w/Intl Traveler<30days: No Traveled to known affect area: No History of Present Illness HPI The patient is a 65-year-old female who presents to the emergency department via private vehicle for hemoptysis. The patient has a history of brain cancer in the past status post surgery and radiation therapy is currently on multiple antiepileptic medications. The patient has a history of biting her tongue during a seizure, resulting in a tracheostomy January 2016. The states the patient was unable to have the tracheostomy removed secondary to persistent possible airway-related issues and issues related to her sedation from seizure medications. The patient was hospitalized one week ago for massive hemoptysis and underwent ENT evaluation and cardiothoracic evaluation. According to the the patient had direct visualization by ENT was awful possible surgery by cardiothoracic surgery, however, he declined. The patient was doing well at home all week, however, developed significant hemoptysis earlier tonight. The states the patient soaked 3 pads full of blood and then had brown stool which appeared to have blood in it. The patient is a poor historian, only able to shake her head yes or no, unable to answer questions directly. PFSH Past Medical History Heart Rhythm Problems: No Cancer: Yes (glioblastoma brain tumor) High Cholesterol: No Chemotherapy: Yes Chest Pain: No Congestive Heart Failure: No Cerebrovascular Accident: No Diabetes: No Diminished Hearing: No Endocrine: No Gastrointestinal Disorders: Yes GERD: Yes Genitourinary: No Headaches: Yes Hypertension: Yes Immune Disorder: No Implanted Vascular Access Dvce: No Musculoskeletal: No Neurologic: Yes (GLIOBLASTOMA, PER PT'S SPOUSE) Psychiatric: No Reproductive: No Respiratory: No Migraines: Yes Radiation Therapy: Yes (MARCH 2015) Seizures: Yes Thyroid Disease: No Ulcer: Yes Menopausal: Yes : 0 Para: 0 Miscarriage: 0 : 0 Past Surgical History Abdominal Surgery: No Cardiac Surgery: No Ear Surgery: No Endocrine Surgery: No Eye Surgery: No Genitourinary Surgery: No Gynecologic Surgery: Yes (hysterectomy 1970) Hysterectomy: Yes Neurologic Surgery: Yes (cranaotmy) Oral Surgery: Yes (tonsils) Thoracic Surgery: No Tonsillectomy: Yes Other Surgery: Yes (TRACH PLACED) Social History Alcohol Use: No Tobacco Use: No Substance Use: No Allergies-Medications (Allergen,Severity, Reaction): Coded Allergies: Codeine (Unverified Allergy, Unknown, Swelling, 08/09/16) Reported Meds & Prescriptions Reported Meds & Active Scripts Active Reported Prevacid Solutab ODT (Lansoprazole) 30 Mg Tab 30 Mg G-TUBE DAILY Mix with 4 ml water before giving via tube. Keppra Liq (Levetiracetam) 500 Mg/5 Ml Soln 7.5 Ml PEG BID Dilantin-125 Liq (Phenytoin) 125 Mg/5 Ml Susp 6 Ml PEG TID Phenobarbital Liq (Phenobarbital) 20 Mg/5 Ml Elix 10 Ml PEG BID Cardizem (Diltiazem HCl) 30 Mg Tab 10 Mg PEG DAILY Review of Systems ROS Limitations: Clinical Condition, Poor Historian Except as stated in HPI: all other systems reviewed are Neg General / Constitutional: No: Fever Cardiovascular: No: Chest Pain or Discomfort Respiratory: Positive: Hemoptysis Gastrointestinal: Positive: Other (possible blood in stools according to the ), No: Vomiting Musculoskeletal: Positive: Other (chronic contractures to the extremities, wheelchair and bedbound) Neurologic: Positive: Other (history of brain cancer) Physical Exam Narrative GENERAL: 65-year-old female who appears her stated age and is in no acute respiratory distress. Cachectic with contractures. SKIN: Warm and dry. HEAD: Atraumatic. Normocephalic. EYES: Pupils equal and round. No scleral icterus. No injection or drainage. ENT: Visible blood in the nares bilateral as well as dry blood in the posterior pharynx. NECK: Tracheostomy in place with blood at the tracheostomy site. CARDIOVASCULAR: Regular rate and rhythm. No murmur appreciated. RESPIRATORY: No accessory muscle use. Clear to auscultation. Breath sounds equal bilaterally. GASTROINTESTINAL: Abdomen soft, G-tube in place. Rectal: Brown stool, no gross blood, grossly guaiac positive. MUSCULOSKELETAL: Contractures the lower extremity is bilateral and the left upper extremity. NEUROLOGICAL: Awake and alert. Able to shake her head yes or no, nonverbal. Will squeeze her hands bilaterally. PSYCHIATRIC: Unable to assess. Data Data Last Documented VS Vital Signs Date Time Temp Pulse Resp B/P Pulse Ox O2 Delivery O2 Flow Rate FiO2 08/15/16 04:23 100 08/15/16 04:23 92 18 168/88 08/15/16 04:05 Trach Collar 6.00 28 Orders Chest, Single Ap (08/15/16 ) Ct Soft Tiss Neck W Iv Cont (08/15/16 ) Complete Blood Count With Diff (08/15/16 03:55) Comprehensive Metabolic Panel (08/15/16 03:55) Act Partial Throm Time (Ptt) (08/15/16 03:55) Prothrombin Time / Inr (Pt) (08/15/16 03:55) Phenytoin (Dilantin) (08/15/16 03:55) Phenobarbital (08/15/16 03:55) Dress, Trach Ea (08/15/16 ) Tray, Trach Care W/14fr Ea (08/15/16 ) Tube, Trach Cuffed Fen: #6 Ea (08/15/16 ) Iohexol 350 Inj (Omnipaque 350 Inj) (08/15/16 05:18) Labs Laboratory Tests Test 08/15/16 04:00 White Blood Count 8.5 TH/MM3 Red Blood Count 3.12 MIL/MM3 Hemoglobin 9.6 GM/DL Hematocrit 28.8 % Mean Corpuscular Volume 92.1 FL Mean Corpuscular Hemoglobin 30.7 PG Mean Corpuscular Hemoglobin 33.3 % Concent Red Cell Distribution Width 18.0 % Platelet Count 310 TH/MM3 Mean Platelet Volume 7.2 FL Neutrophils (%) (Auto) 49.2 % Lymphocytes (%) (Auto) 25.0 % Monocytes (%) (Auto) 9.1 % Eosinophils (%) (Auto) 16.2 % Basophils (%) (Auto) 0.5 % Neutrophils # (Auto) 4.2 TH/MM3 Lymphocytes # (Auto) 2.1 TH/MM3 Monocytes # (Auto) 0.8 TH/MM3 Eosinophils # (Auto) 1.4 TH/MM3 Basophils # (Auto) 0.0 TH/MM3 CBC Comment DIFF FINAL Differential Comment Prothrombin Time 10.7 SEC Prothromb Time International 1.0 RATIO Ratio Activated Partial 26.4 SEC Thromboplast Time Sodium Level 138 MEQ/L Potassium Level 3.3 MEQ/L Chloride Level 102 MEQ/L Carbon Dioxide Level 27.5 MEQ/L Anion Gap 9 MEQ/L Blood Urea Nitrogen 11 MG/DL Creatinine 0.40 MG/DL Estimat Glomerular Filtration 161 ML/MIN Rate Random Glucose 117 MG/DL Calcium Level 7.7 MG/DL Total Bilirubin 0.2 MG/DL Aspartate Amino Transf 61 U/L (AST/SGOT) Alanine Aminotransferase 87 U/L (ALT/SGPT) Alkaline Phosphatase 214 U/L Total Protein 6.4 GM/DL Albumin 2.3 GM/DL Phenytoin (Dilantin) Level 15.3 MCG/ML Phenobarbital Level 21.0 MCG/ML MDM Medical Decision Making Medical Screen Exam Complete: Yes Emergency Medical Condition: Yes Medical Record Reviewed: Yes Interpretation(s) Laboratory Tests Test 08/15/16 04:00 White Blood Count 8.5 TH/MM3 Red Blood Count 3.12 MIL/MM3 Hemoglobin 9.6 GM/DL Hematocrit 28.8 % Mean Corpuscular Volume 92.1 FL Mean Corpuscular Hemoglobin 30.7 PG Mean Corpuscular Hemoglobin 33.3 % Concent Red Cell Distribution Width 18.0 % Platelet Count 310 TH/MM3 Mean Platelet Volume 7.2 FL Neutrophils (%) (Auto) 49.2 % Lymphocytes (%) (Auto) 25.0 % Monocytes (%) (Auto) 9.1 % Eosinophils (%) (Auto) 16.2 % Basophils (%) (Auto) 0.5 % Neutrophils # (Auto) 4.2 TH/MM3 Lymphocytes # (Auto) 2.1 TH/MM3 Monocytes # (Auto) 0.8 TH/MM3 Eosinophils # (Auto) 1.4 TH/MM3 Basophils # (Auto) 0.0 TH/MM3 CBC Comment DIFF FINAL Differential Comment Prothrombin Time 10.7 SEC Prothromb Time International 1.0 RATIO Ratio Activated Partial 26.4 SEC Thromboplast Time Sodium Level 138 MEQ/L Potassium Level 3.3 MEQ/L Chloride Level 102 MEQ/L Carbon Dioxide Level 27.5 MEQ/L Anion Gap 9 MEQ/L Blood Urea Nitrogen 11 MG/DL Creatinine 0.40 MG/DL Estimat Glomerular Filtration 161 ML/MIN Rate Random Glucose 117 MG/DL Calcium Level 7.7 MG/DL Total Bilirubin 0.2 MG/DL Aspartate Amino Transf 61 U/L (AST/SGOT) Alanine Aminotransferase 87 U/L (ALT/SGPT) Alkaline Phosphatase 214 U/L Total Protein 6.4 GM/DL Albumin 2.3 GM/DL Phenytoin (Dilantin) Level 15.3 MCG/ML Phenobarbital Level 21.0 MCG/ML CT soft tissue neck with contrast reveals increased density around the tracheostomy tube likely related to evolving hematoma. There is some minimal soft tissue air seen increased density superior to the tracheostomy tube. A definite fistula was not seen. There is a distended esophagus with debris in the upper chest. Differential Diagnosis Differential diagnosis includes fistula, hematoma, pulmonary embolism, lung cancer, coagulopathy, AV malformation. Narrative Course IV was established, labs are drawn and sent, and the patient was placed on cardiac telemetry monitoring and continuous pulse oximetry monitoring. Respiratory therapy states the tracheostomy was unable to be suctioned as it is a fenestrated trach. The patient has blood within the nares and oropharynx as well as at the opening of the trach, may be secondary to underlying hematoma versus arterial erosion. Chest x-ray was obtained and repeat CT of the neck was obtained. Hemoglobin was 9.6, was greater than 10 during her previous hospitalization. Patient had one episode in the emergency department of a small amount of blood from the tracheostomy tube site, but nothing compared to what happened at home, according to the . CT soft tissue neck was reviewed, revealed increased density around the tracheostomy to likely related to evolving hematoma and distended esophagus with debris in the upper chest, possibly could be food products and/or coagulated blood. The patient was guaiac positive, may be from swallowed blood to her previous hemoptysis. Patient has been evaluated by ENT and cardiothoracic surgery, however, continues to have symptomatic bleeding. She may benefit from tracheostomy revision and/or removal. The patient was taken off of oxygen and placed on humidified air to evaluate her oxygen saturation levels. The patient will be admitted to the intensive care unit overnight. HemaPrompt Point of Care Internal Pos. & Neg. Controls: Passed Fecal Specimen Occult Blood: Positive Physician Communication Physician Communication The on-call construction estimator was paged for admission. I discussed the patient with Dr. Briceno who agrees with admission. Diagnosis Primary Impression: Tracheostomy complication Qualified Code: J95.01 - Hemorrhage from tracheostomy stoma Additional Impression: Hemoptysis Admitting Information Admitting Physician Requests: Admit Condition: Stable Koko Joyce MD Aug 15, 2016 04:05
[2016-08-15 04:12] LABS: AUTOMATED NEUTROPHIL # 4.2 TH/MM3 (1.8-7.7); BASOPHIL % 0.5 % (0.0-2.0); EOSINOPHIL # 1.4 TH/MM3 (0-0.4); EOSINOPHIL % 16.2 % (0.0-4.0); HEMATOCRIT 28.8 % (35.0-46.0); HEMO FLAGS DIFF FINAL; LYMPHOCYTE # 2.1 TH/MM3 (1.0-4.8); MEAN CELL VOLUME 92.1 FL (80.0-100.0); MEAN CORPUSCULAR HEMOGLOBIN 30.7 PG (27.0-34.0); MEAN CORPUSCULAR HGB CONC 33.3 % (32.0-36.0); MONO % 9.1 % (0.0-8.0); NEUT % 49.2 % (16.0-70.0); PLATELET COUNT 310 TH/MM3 (150-450); RED BLOOD COUNT 3.12 MIL/MM3 (4.00-5.30); WHITE BLOOD COUNT 8.5 TH/MM3 (4.0-11.0)
[2016-08-15 04:18] LABS: APTT (PATIENT) 26.4 SEC (24.3-30.1); PROTHROMBIN TIME - PATIENT 10.7 SEC (9.8-11.6)
[2016-08-15 04:32] LABS: ALT (GPT) 87 U/L (10-53); ANION GAP 9 MEQ/L (5-15); AST (GOT) 61 U/L (15-37); BICARBONATE 27.5 MEQ/L (21.0-32.0); BLOOD UREA NITROGEN 11 MG/DL (7-18); CHLORIDE 102 MEQ/L (98-107); GLOMERULAR FILTRATION RATE 161 ML/MIN (>89); POTASSIUM 3.3 MEQ/L (3.5-5.1); SODIUM (NA) 138 MEQ/L (136-145)
[2016-08-15 04:37] LABS: ALKALINE PHOSPHATASE 214 U/L (45-117); TOTAL BILIRUBIN ADULT 0.2 MG/DL (0.2-1.0)
--- NOTE | 2016-08-15 04:58 | RADRPT ---
EXAM DATE/TIME: 08/15/2016 04:18 [facility] COMPARISON: CHEST SINGLE AP, August 09, 2016, 18:20. INDICATIONS : Patient is short of breath. MEDICAL HISTORY : Unobtainable. SURGICAL HISTORY : Tracheotomy. ENCOUNTER: Initial ACUITY: 1 day PAIN SCORE: Non-responsive. LOCATION: Bilateral chest FINDINGS: There is a tracheostomy tube in place. There is increased density medial left base. Right lung is natalee ar. CONCLUSION: Left lower lobe atelectasis or consolidation. Zeus Wharton MD on August 15, 2016 at 4:55 Board Certified Radiologist. This report was verified electronically.
[2016-08-15] MEDS ORDERED: IOHEXOL 350 MG/ML 10 ML VIAL (for RAD DIAG) IV ONE (05:18)
--- NOTE | 2016-08-15 05:36 | RADRPT ---
EXAM DATE/TIME: 08/15/2016 04:58 [facility] COMPARISON: CT SOFT TISSUE NECK W CONTRAST, August 10, 2016, 1:54. INDICATIONS : Hemoptysis, peritracheal hematoma vs fistula IV CONTRAST: 68 cc Omnipaque 350 (iohexol) IV RADIATION DOSE: 18.85 CTDIvol (mGy) MEDICAL HISTORY : Hypertension. Seizures. Glioblastoma. SURGICAL HISTORY : Craniotomy. Tonsillectomy.Tracheostomy. ENCOUNTER: Initial ACUITY: 1 day PAIN SCALE: 3/10 LOCATION: neck TECHNIQUE: Volumetric scanning of the neck was performed. Using automated exposure control and adjustment of th e mA and/or kV according to patient size, radiation dose was kept as low as reasonably achievable to obtain optimal diagnostic quality images. FINDINGS: NASOPHARYNX: The nasopharyngeal airway has a normal configuration. No mucosal thickening or mass is seen. OROPHARYNX: The intrinsic muscles of the tongue are symmetric. The tonsillar pillars are intact. The prevertebr al soft tissues are not thickened. LARYNX: There is a tracheostomy tube in place. There is increased density in the trachea above the tracheosto my tube. There is scattered air seen in this region at the lower level of thyroid cartilage. PARAPHARYNGEAL: The parapharyngeal space is intact. SALIVARY GLANDS: The parotid and submandibular glands are intact. LYMPH NODES: No enlarged or necrotic-appearing nodes. THYROID: Homogeneous enhancement without evidence of nodule. BONES: Unremarkable. OTHER: The esophagus is filled with debris in the upper chest. The upper aspect of the thoracic esophagus is distended. CONCLUSION: 1. Increased density around a tracheostomy tube likely related to evolving hematoma. There is some mi nimal soft tissue air seen increased density superior to the tracheostomy tube. A definite fistula is not seen. 2. There is a distended esophagus with debris in the upper chest. Zeus Wharton MD on August 15, 2016 at 5:26 Board Certified Radiologist. This report was verified electronically.
[2016-08-15] MEDS ORDERED: RESP: ALBUTEROL 2.5 MG/IPRATROPIUM 0.5 MG NEB (PRN) INH (06:15)
[2016-08-15] MEDS ORDERED: LORazepam 2 MG/ML VIAL IV PRN (06:15)
[2016-08-15] MEDS ORDERED: ONDANSETRON HCL 4 MG/2 ML VIAL IV PRN (06:15)
[2016-08-15] MEDS ORDERED: SODIUM CHLORIDE 0.9% FLUSH 5 ML FLUSH IV FLUSH PRN (06:15)
[2016-08-15] MEDS ORDERED: ACETAMINOPHEN 325 MG TAB PO PRN (06:15)
[2016-08-15] MEDS ORDERED: ZOLPIDEM TARTRATE 5 MG TAB PO PRN (06:15)
[2016-08-15] MEDS ORDERED: MISCELLANEOUS NURSING INFORMATION XX SCH (06:15)
[2016-08-15] MEDS ORDERED: METOCLOPRAMIDE HCL 10 MG/2 ML VIAL IV PRN (06:15)
[2016-08-15] MEDS ORDERED: CHLORHEXIDINE GLUCONATE 2 % 1 PACK (2 CLOTHS) TOP PRN (06:15)
[2016-08-15] MEDS ORDERED: MORPHINE SULFATE 4 MG/ML INJ IV PRN (06:15)
[2016-08-15] MEDS: SODIUM CHLOR 0.9% 1000 ML INJ 1,000 ML IV SCH ×2 (06:49→17:56)
[2016-08-15] MEDS ORDERED: HYDROmorphone HCL PF 1 MG/ML VIAL IV PRN (07:00)
--- NOTE | 2016-08-15 07:54 | HHI.HP ---
HPI Service Critical Care Medicine Primary Care Physician Tato Colunga MD Admission Diagnosis tracheostomy complication with hemoptysis Diagnosis: Chief Complaint: Bleeding from tracheostomy site Travel History International Travel<30 Days: No Contact w/Intl Traveler <30 Da: No Traveled to Known Affected Are: No History of Present Illness 65 y/o woman required tracheostomy for airway control after seizures following treatment for glioblastoma. Trach placed 01/29/2016. She has recently developed bleeding from the trach and was admitted 6 daus ago for evaluation by ENT, CT Surgery, and underwent CT scans. No arterio-tracheal fistula seen on CT. There is a large, circumferential subcutaneous hematoma deep in the soft tissue between the skin and the trachea. She bled profusely again last night with blood coughed up through mouth. Review of Systems ROS Unobtainable, sedated from AEDs. Past Family Social History Allergies: Coded Allergies: Codeine (Unverified Allergy, Unknown, Swelling, 08/09/16) Past Medical History Past Medical History Heart Rhythm Problems: No Cancer: Yes (glioblastoma brain tumor) High Cholesterol: No Chemotherapy: Yes Chest Pain: No Congestive Heart Failure: No Cerebrovascular Accident: No Diabetes: No Diminished Hearing: No Endocrine: No Gastrointestinal Disorders: Yes GERD: Yes Genitourinary: No Headaches: Yes Hypertension: Yes Immune Disorder: No Implanted Vascular Access Dvce: No Musculoskeletal: No Neurologic: Yes (GLIOBLASTOMA, PER PT'S SPOUSE) Psychiatric: No Reproductive: No Respiratory: No Migraines: Yes Radiation Therapy: Yes (MARCH 2015) Seizures: Yes Thyroid Disease: No Ulcer: Yes Menopausal: Yes : 0 Para: 0 Miscarriage: 0 : 0 Past Surgical History Abdominal Surgery: No Cardiac Surgery: No Ear Surgery: No Endocrine Surgery: No Eye Surgery: No Genitourinary Surgery: No Gynecologic Surgery: Yes (hysterectomy 1970) Hysterectomy: Yes Neurologic Surgery: Yes (cranaotmy) Oral Surgery: Yes (tonsils) Thoracic Surgery: No Tonsillectomy: Yes Other Surgery: Yes (TRACH PLACED) Social History Alcohol Use: No Tobacco Use: No Substance Use: No Allergies-Medications Allergies-Medications (Allergen,Severity, Reaction): Coded Allergies: Codeine (Unverified Allergy, Unknown, Swelling, 08/09/16) Reported Meds & Prescriptions Reported Meds & Active Scripts Active Reported Prevacid Solutab ODT (Lansoprazole) 30 Mg Tab 30 Mg G-TUBE DAILY Mix with 4 ml water before giving via tube. Keppra Liq (Levetiracetam) 500 Mg/5 Ml Soln 7.5 Ml PEG BID Dilantin-125 Liq (Phenytoin) 125 Mg/5 Ml Susp 6 Ml PEG TID Phenobarbital Liq (Phenobarbital) 20 Mg/5 Ml Elix 10 Ml PEG BID Cardizem (Diltiazem HCl) 30 Mg Tab 10 Mg PEG DAILY Physical Exam Vital Signs Vital Signs Date Time Temp Pulse Resp B/P Pulse Ox O2 Delivery O2 Flow Rate FiO2 08/15/16 07:09 91 20 137/65 92 Trach Collar 6 08/15/16 07:09 20 92 Trach Collar 6 08/15/16 07:00 93 Trach Collar 21 08/15/16 04:23 100 08/15/16 04:23 92 18 168/88 99 08/15/16 04:05 99 Trach Collar 6.00 28 Physical Exam P 91, BP 137/65, R 15, sats 93% Head: Normal. Neck: Trach site with subcutaneous swelling, firm. Lungs: Scattered rhonchi, moves air well. Heart: NL S1S2, RRR, No JVD Abdomen: Soft, nontender, BS active, Extremities: Contracted, well perfused. Neuro: Somnolent, opens eyes to voice. Laboratory Laboratory Tests Test 08/15/16 04:00 White Blood Count 8.5 Red Blood Count 3.12 Hemoglobin 9.6 Hematocrit 28.8 Mean Corpuscular Volume 92.1 Mean Corpuscular Hemoglobin 30.7 Mean Corpuscular Hemoglobin 33.3 Concent Red Cell Distribution Width 18.0 Platelet Count 310 Mean Platelet Volume 7.2 Neutrophils (%) (Auto) 49.2 Lymphocytes (%) (Auto) 25.0 Monocytes (%) (Auto) 9.1 Eosinophils (%) (Auto) 16.2 Basophils (%) (Auto) 0.5 Neutrophils # (Auto) 4.2 Lymphocytes # (Auto) 2.1 Monocytes # (Auto) 0.8 Eosinophils # (Auto) 1.4 Basophils # (Auto) 0.0 CBC Comment DIFF FINAL Differential Comment Prothrombin Time 10.7 Prothromb Time International 1.0 Ratio Activated Partial 26.4 Thromboplast Time Sodium Level 138 Potassium Level 3.3 Chloride Level 102 Carbon Dioxide Level 27.5 Anion Gap 9 Blood Urea Nitrogen 11 Creatinine 0.40 Estimat Glomerular Filtration 161 Rate Random Glucose 117 Calcium Level 7.7 Total Bilirubin 0.2 Aspartate Amino Transf 61 (AST/SGOT) Alanine Aminotransferase 87 (ALT/SGPT) Alkaline Phosphatase 214 Total Protein 6.4 Albumin 2.3 Phenytoin (Dilantin) Level 15.3 Phenobarbital Level 21.0 Result Diagram: 08/15/1639908/15/16399 Assessment and Plan Problem List: (1) Tracheostomy complication ICD Code: J95.00 Status: Acute (2) Hemoptysis ICD Code: R04.2 Status: Acute (3) 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 Recurrent bleeding from tracheostomy stoma, soft tissue. (No arterio- tracheal fistula on CT Scan) 2. Glioblastoma. 3. Seizures Plan: 1. Admit ICU. 2. Surgery consult. 3. No chemical DVT px. 4. Hgb. 5. Coags. 6. Protonix. 7. SCDs. Overall impression: Critically ill with active hemorrhage from tracheostomy stoma site. Will likely require neck exploration. Discussed with her at the bedside in the ED. Critical care 44 ins Problem Qualifiers (1) Tracheostomy complication: Qualified Code: J95.01 - Hemorrhage from tracheostomy stoma Jeff Garcia MD Aug 15, 2016 07:53
[2016-08-15] MEDS: DOCUSATE SODIUM 100 MG CAP PO SCH ×2 (08:19→21:00)
[2016-08-15] MEDS: SODIUM CHLORIDE 0.9% FLUSH 5 ML FLUSH IV FLUSH SCH ×2 (08:19→21:00)
[2016-08-15] MEDS: PANTOPRAZOLE SODIUM 40 MG VIAL IV SCH (10:44)
[2016-08-15] MEDS: PHENYTOIN SUSP 100 MG/4 ML CUP PEG SCH ×3 (10:44→18:30)
[2016-08-15] MEDS: levETIRAcetam 500 MG/5 ML UDC PEG SCH ×2 (10:44→21:00)
--- NOTE | 2016-08-15 10:59 | PD.CONS ---
HPI Service General surgery Consult Requested By Dr. Boothe Reason for Consult Bleeding from tracheostomy site Primary Care Physician Tato Colunga MD History of Present Illness This is a 65-year-old female with a complicated medical history recently discharged after extensive evaluation for trach site bleeding. The patient has a history of glioblastoma multiform A status post craniotomy, radiation, and chemotherapy. In January she was admitted to the hospital with status epilepticus and required tracheostomy placement by Dr. Jerez. She's been cared for since that time by Dr. Estes of pulmonology. The patient was admitted a few days ago on August 09 with profuse hemoptysis. She was evaluated by Dr. Ralph of cardiothoracic surgery and Dr. Beck of ENT. CT of the neck was also performed. There was hematoma in the soft tissues of the neck anteriorly but no evidence of tracheoinnominate fistula. The patient was discharged home 2 days ago. This morning at 2:30 AM she had extensive bleeding from the trach tube, mouth, and nose. She has not had further bleeding. Her cuff is not obviously visible on CT scan but the corporation pilot balloon is hyperinflated. She has a fenestrated #[address] with fenestrated inner cannula in place. Review of Systems Constitutional: DENIES: Fever, Chills Eyes: DENIES: Eye inflammation, Eye pain Gastrointestinal: DENIES: Abdominal pain, Diarrhea Integumentary: DENIES: Pruritus Hematologic/lymphatic: DENIES: Bruising, Lymphadenopathy Neurologic: COMPLAINS OF: Localized weakness Past Family Social History Past Medical History Glioblastoma multiforme Seizure disorder Past Surgical History Craniotomy with stereotactic tumor resection 01/19/15 (Dr. Mathew) Percutaneous Tracheostomy 01/29/16 (Dr. Jerez) PEG hysterectomy Tonsillectomy Reported Medications Reported Meds & Active Scripts Active Reported Prevacid Solutab ODT (Lansoprazole) 30 Mg Tab 30 Mg G-TUBE DAILY Mix with 4 ml water before giving via tube. Keppra Liq (Levetiracetam) 500 Mg/5 Ml Soln 7.5 Ml PEG BID Dilantin-125 Liq (Phenytoin) 125 Mg/5 Ml Susp 6 Ml PEG TID Phenobarbital Liq (Phenobarbital) 20 Mg/5 Ml Elix 10 Ml PEG BID Cardizem (Diltiazem HCl) 30 Mg Tab 10 Mg PEG DAILY Allergies: Coded Allergies: Codeine (Verified Allergy, Unknown, Swelling, 08/15/16) Active Ordered Medications Current Medications Medications (Trade) Dose Ordered Sig/Shameka Route Start Time Stop Time Status Last Admin (NS 1000 ml Inj) 1,000 ml @ 84 mls/hr [id number] IV 08/15/16 06:01 08/15/16 06:49 (NS Flush) 2 ml UNSCH PRN IV FLUSH 08/15/16 06:15 (NS Flush) 2 ml BID IV FLUSH 08/15/16 09:00 (Tylenol) 650 mg Q6H PRN PO 08/15/16 06:15 (Protonix Inj) 40 mg DAILY IV 08/15/16 09:00 08/15/16 10:44 (Ativan Inj) 2 mg Q4H PRN IV 08/15/16 06:15 (Zofran Inj) 4 mg Q6H PRN IV 08/15/16 06:15 (Reglan Inj) 10 mg Q6H PRN IV 08/15/16 06:15 (Colace) 100 mg BID PO 08/15/16 09:00 (Ambien) 5 mg HS PRN PO 08/15/16 06:15 Miscellaneous Information 1 [id number] XX 08/15/16 06:15 (Chlorhexidine 2% Cloth) 3 pack Taper DAILY@04 TOP 08/16/16 04:00 08/12/17 03:59 (Chlorhexidine 2% Cloth) 3 pack UNSCH PRN TOP 08/15/16 06:15 (Keppra Liq) 500 mg BID PEG 08/15/16 09:00 08/15/16 10:44 (Dilantin Liq) 100 mg TID PEG 08/15/16 09:00 08/15/16 10:44 (Dilaudid Pf Inj) 0.5 mg Q3H PRN IV 08/15/16 07:00 Family History Noncontributory Social History No alcohol tobacco or drug use. She is cared for by her . Physical Exam Vital Signs Vital Signs Date Time Temp Pulse Resp B/P Pulse Ox O2 Delivery O2 Flow Rate FiO2 08/15/16 10:00 94 20 164/72 100 Trach Collar 6 08/15/16 07:09 91 20 137/65 92 Trach Collar 6 08/15/16 07:09 20 92 Trach Collar 6 08/15/16 07:00 93 Trach Collar 21 08/15/16 04:23 100 08/15/16 04:23 92 18 168/88 99 08/15/16 04:05 99 Trach Collar 6.00 28 Physical Exam GENERAL: Awake. No acute distress. Frail. Nonverbal. ENT: Dried blood in her nares. No active bleeding. NECK: Trach tube in place #6 fenestrated with fenestrated inner cannula. Her skin is normal appearing. There is not an obvious massive hematoma. No active bleeding. CHEST: Lungs clear to auscultation bilaterally with no wheezing or rhonchi. No respiratory distress. CARDIOVASCULAR: Regular rate and rhythm. EXTREMITIES: Weak, thin. SKIN: Warm, dry, nonjaundiced. Laboratory Laboratory Tests Test 08/15/16 04:00 White Blood Count 8.5 Red Blood Count 3.12 Hemoglobin 9.6 Hematocrit 28.8 Mean Corpuscular Volume 92.1 Mean Corpuscular Hemoglobin 30.7 Mean Corpuscular Hemoglobin 33.3 Concent Red Cell Distribution Width 18.0 Platelet Count 310 Mean Platelet Volume 7.2 Neutrophils (%) (Auto) 49.2 Lymphocytes (%) (Auto) 25.0 Monocytes (%) (Auto) 9.1 Eosinophils (%) (Auto) 16.2 Basophils (%) (Auto) 0.5 Neutrophils # (Auto) 4.2 Lymphocytes # (Auto) 2.1 Monocytes # (Auto) 0.8 Eosinophils # (Auto) 1.4 Basophils # (Auto) 0.0 CBC Comment DIFF FINAL Differential Comment Prothrombin Time 10.7 Prothromb Time International 1.0 Ratio Activated Partial 26.4 Thromboplast Time Sodium Level 138 Potassium Level 3.3 Chloride Level 102 Carbon Dioxide Level 27.5 Anion Gap 9 Blood Urea Nitrogen 11 Creatinine 0.40 Estimat Glomerular Filtration 161 Rate Random Glucose 117 Calcium Level 7.7 Total Bilirubin 0.2 Aspartate Amino Transf 61 (AST/SGOT) Alanine Aminotransferase 87 (ALT/SGPT) Alkaline Phosphatase 214 Total Protein 6.4 Albumin 2.3 Phenytoin (Dilantin) Level 15.3 Phenobarbital Level 21.0 Result Diagram: 08/15/160 08/15/160 Imaging Last Impressions Neck CT 08/15/16 0000 Signed Impressions: Service Date/Time: July 04:58 - CONCLUSION: 1. Increased density around a tracheostomy tube likely related to evolving hematoma. There is some minimal soft tissue air seen increased density superior to the tracheostomy tube. A definite fistula is not seen. 2. There is a distended esophagus with debris in the upper chest. Zeus Wharton MD Chest X-Ray 08/15/16 0000 Signed Impressions: Service Date/Time: July 04:18 - CONCLUSION: Left lower lobe atelectasis or consolidation. Zeus Wharton MD Assessment and Plan Assessment and Plan 65 yo F with recurrent bleeding from trach site. I discussed case in detail with Dr. Marquez of CTS and Dr. Garcia. There is no evidence of tracheoinnomate fistula although it is a possibility. Her would not desire her to undergo sternotomy if this was the case. We will plan to orally intubate the patient, remove the trach, locally explore the stoma. If there is massive bleeding she would require stent placement by IR. I discussed the case in detail with the and he understands and is in agreement. Curtis Escalona MD Aug 15, 2016 10:59
[2016-08-15 11:43] LABS: HEMATOCRIT 26.1 % (35.0-46.0); REVIEW FLAG FINAL
[2016-08-15] MEDS ORDERED: MIDAZOLAM HCL 5 MG/ML VIAL (1 ML) ONE (16:21)
[2016-08-15] MEDS ORDERED: ROCURONIUM INJ 50 MG/5 ML VIAL IV ONE (16:45)
[2016-08-15] MEDS ORDERED: MIDAZOLAM HCL 5 MG/ML VIAL (1 ML) IV ONE (16:45)
[2016-08-15] MEDS ORDERED: PROPOFOL 1000 MG/100 ML INJ 100 ML ONE (17:06)
[2016-08-15] MEDS ORDERED: PROPOFOL 1000 MG/100 ML IV SCH (17:45)
[2016-08-15] MEDS ORDERED: PROPOFOL 1000 MG/100 ML INJ 100 ML IV SCH (18:00)
[2016-08-15] MEDS: LORazepam 2 MG/ML VIAL IV PUSH PRN ×2 (18:04→23:47)
--- NOTE | 2016-08-15 18:11 | HHI.CCPN ---
Subjective Remarks/Hospital Course The patient was transported to the [facility] where Dr. Jose Luis Bill and I arranged for inspection of her trach insertion site. The trach has been in for 7 months and she has bled massively twice from the site. Inspection above and below the site by the ENT service has not revealed a source of hemorrhage. Dr. Bill intubated the trachea orally and once engaged and ventilating I withdrew the indwelling tracheostomy tube. 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 The bleeding stopped immediately. I discussed our options again with her outside the room. He chose not to try an endovascular stent or operation. He decided to make her DNR/comfort measures only. He sighted her ongoing struggles with seizures, sedentary lifestyle, and malignant brain tumor as reasons she had expressed her desire recently for no major interventions. He has clearly thought a while about this decision and his has made her wishes clear. The bleeding has stopped temporarily and we will make her comfortable on mechanical ventilation. Objective Vital Signs Date Time Temp Pulse Resp B/P Pulse Ox O2 Delivery O2 Flow Rate FiO2 08/15/16 16:00 99.7 90 17 138/67 100 08/15/16 16:00 T-Piece 6.00 28 Humidified Result Diagram: 08/15/16 1115 08/15/16 0400 Objective Remarks P 91, BP 137/65, R 15, sats 93% Head: Normal. Neck: Trach site with subcutaneous swelling, firm. Lungs: Scattered rhonchi, moves air well. Heart: NL S1S2, RRR, No JVD Abdomen: Soft, nontender, BS active, Extremities: Contracted, well perfused. Neuro: Somnolent, opens eyes to voice. 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 Recurrent bleeding from tracheostomy stoma, soft tissue. (No arterio- tracheal fistula on CT Scan) 2. Glioblastoma. 3. Seizures Plan: 1. Admit ICU. 2. Surgery consult. 3. No chemical DVT px. 4. Hgb. 5. Coags. 6. Protonix. 7. SCDs. Overall impression: Critically ill with active hemorrhage from tracheostomy stoma site. Will likely require neck exploration. Discussed with her at the bedside in the ED. Critical care 44 ins Problem Qualifiers (1) Tracheostomy complication: Qualified Code: J95.01 - Hemorrhage from tracheostomy stoma Jeff Garcia MD Aug 15, 2016 18:11
[2016-08-15] MEDS: MORPHINE SULFATE 8 MG/ML INJ IV PUSH PRN ×3 (18:27→19:23)
[2016-08-15] MEDS ORDERED: NOREPINEPHRINE 4 MG/D5W 250 ML IV SCH (18:45)
--- NOTE | 2016-08-15 19:52 | PD.PROCEDR ---
Procedure Note Procedure Endotracheal Intubation Diagnosis: Bleeding from tracheostomy site Indications: The patient is a 65-year-old female with a history of tracheostomy and recurrent bleeding from around the tracheostomy site. After discussion with Dr. Garcia, general surgery, it was decided that to complete a thorough evaluation of the bleeding, the patient would need to be orotracheally intubated and the tracheostomy removed to evaluate the area around the trach. Given the repeated nature of the bleed, a tracheoinnominate fistula is on the differential, and along with this the patient's was consented for possible massive hemorrhage associated with this procedure. Consent: Written consent was obtained Anesthesia: Versed 5 mg IV, rocuronium 50 mg IV Description of the Procedure: The patient was positioned in the sniffing position. Pre-oxygenation was performed using a air/trach collar. Anesthesia was induced. I performed laryngoscopy using a GlideScope so that a thorough video evaluation of the hypopharynx could be done. This demonstrated normal anatomy with clean, nonedematous vocal cords. There were no evidence of bleeding or old clot or blood anywhere in the hypopharynx down to the level of the cords. The patient is an easy video laryngoscopy. At this point, a 7.0 endotracheal tube was passed atraumatically through the vocal cords. After visual confirmation of the endotracheal tube to the cords, the tracheostomy was removed from the stoma. Immediately, a massive volume of bright red blood came from the trach stoma site. A 6.0 endotracheal tube was inserted into the stoma, and the balloon was over inflated and immediate upper traction was applied. The patient was ventilated through this endotracheal tube in the stoma. At this point the patient became hypotensive and tachycardic. A normal saline fluid bolus was started. Dr. 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 At this point, given the patient's chronic course, the decision was made not to pursue more aggressive measures. The endotracheal tube was removed from the stoma, and the endotracheal tube was advanced to 27 cm at the teeth. At this point the endotracheal tube was confirmed in the 8 mainstem. The endotracheal tube was then removed 1/2 cm time until bilateral breath sounds were heard. At this point the endotracheal tube was secured at 23-1/2 cm at teeth, beneath the level of the stoma, but above the augustin by clinical exam. A chest x-ray has been ordered. I personally performed the procedure. Fuad Bill MD Aug 15, 2016 19:52
[2016-08-15] MEDS: CHLORHEXIDINE 0.12% (ORAL KIT) 15 ML CUP MT SCH (20:00)
[2016-08-16] VITALS (8 sets, daily range): BP systolic 33–51; BP diastolic 25–32; PULSE 88–100; RESP 14; TEMP 96–99.6; O2SAT 100
[2016-08-16] MEDS ORDERED: PROPOFOL 1000 MG/100 ML INJ 100 ML IV SCH (01:30)
[2016-08-16] MEDS ORDERED: CHLORHEXIDINE GLUCONATE 2 % 1 PACK (2 CLOTHS) TOP SCH (04:00)
[2016-08-16] MEDS: SODIUM CHLOR 0.9% 1000 ML INJ 1,000 ML IV SCH (05:51)
[2016-08-16] MEDS: CHLORHEXIDINE 0.12% (ORAL KIT) 15 ML CUP MT SCH (08:00)
[2016-08-16] MEDS: levETIRAcetam 500 MG/5 ML UDC PEG SCH (08:41)
[2016-08-16] MEDS: SODIUM CHLORIDE 0.9% FLUSH 5 ML FLUSH IV FLUSH SCH (08:41)
[2016-08-16] MEDS: PANTOPRAZOLE SODIUM 40 MG VIAL IV SCH (08:41)
[2016-08-16] MEDS: PHENYTOIN SUSP 100 MG/4 ML CUP PEG SCH (08:41)
[2016-08-16] MEDS: DOCUSATE SODIUM 100 MG CAP PO SCH (08:41)
--- NOTE | 2016-08-16 10:46 | HHI.CCPN ---
Subjective Remarks/Hospital Course The patient was transported to the [facility] where Dr. Jose Luis Bill and I arranged for inspection of her trach insertion site. The trach has been in for 7 months and she has bled massively twice from the site. Inspection above and below the site by the ENT service has not revealed a source of hemorrhage. Dr. Bill intubated the trachea orally and once engaged and ventilating I withdrew the indwelling tracheostomy tube. 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 The bleeding stopped immediately. I discussed our options again with her outside the room. He chose not to try an endovascular stent or operation. He decided to make her DNR/comfort measures only. He sighted her ongoing struggles with seizures, sedentary lifestyle, and malignant brain tumor as reasons she had expressed her desire recently for no major interventions. He has clearly thought a while about this decision and his has made her wishes clear. The bleeding has stopped temporarily and we will make her comfortable on mechanical ventilation. 08/16: Patient was made DNR comfort measures last night after TI fistula developed. I pronounced her of cardiac standstill at 0909 this morning while on mechanical; ventilation. at bedside. Objective Vital Signs Date Time Temp Pulse Resp B/P Pulse Ox O2 Delivery O2 Flow Rate FiO2 08/16/16 08:00 100 08/16/16 08:00 88 08/16/16 08:00 96.0 14 33/25 100 08/16/16 07:00 Mechanical Ventilator 08/15/16 16:00 6.00 Intake and Output 08/15/16 08/15/16 08/16/16 08:00 16:00 00:00 Intake Total 807 ml Output Total 0 ml Balance 807 ml Result Diagram: 08/15/16 1115 08/15/16 0400 Objective Remarks Last exam before : Head: Normal. Neck: Trach site with subcutaneous swelling, firm. Lungs: Scattered rhonchi, moves air well. Heart: NL S1S2, RRR, No JVD Abdomen: Soft, nontender, BS active, Extremities: Contracted, well perfused. Neuro: Somnolent, opens eyes to voice. 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 Recurrent bleeding from tracheostomy stoma, soft tissue. (No arterio- tracheal fistula on CT Scan) 2. Glioblastoma. 3. Seizures 4. Tracheo-innominate fistula 5. Massive hemorrhage. 6. Hypovolemic Shock Plan: 1. DNR, comfort status. 3. No chemical DVT px. Overall impression: Critically ill with active hemorrhage from tracheostomy stoma site. This is the third major bleed. Discussed with her at the bedside. He opted for palliative care/comfort measures. Problem Qualifiers (1) Tracheostomy complication: Qualified Code: J95.01 - Hemorrhage from tracheostomy stoma Jeff Garcia MD Aug 16, 2016 10:46
--- NOTE | 2016-08-16 10:47 | DEATH SUM ---
Summary Demographics Date Pronounced : Aug 16, 2016 Time Of : 908 Pronounced By: Amy Garcia M.D. Preliminary Cause of : Other (Tracheoinnominate fistula and massive hemorrhage.) Jeff Garcia MD Aug 16, 2016 10:47
--- NOTE | 2016-08-16 10:50 | HHI.DS ---
Discharge Summary Admission Date Aug 15, 2016 at 05:43 Admitting Diagnosis tracheostomy complication with hemoptysis Procedures Direct laryngoscopy Brief History 65 y/o woman required tracheostomy for airway control after seizures following treatment for glioblastoma. Trach placed 01/29/2016. She has recently developed bleeding from the trach and was admitted 6 daus ago for evaluation by ENT, CT Surgery, and underwent CT scans. No arterio-tracheal fistula seen on CT. There is a large, circumferential subcutaneous hematoma deep in the soft tissue between the skin and the trachea. She bled profusely again last night with blood coughed up through mouth. CBC/BMP: 08/15/16 1115 08/15/16 0400 Significant Findings Laboratory Tests Test 08/15/16 08/15/16 04:00 11:15 Red Blood Count 3.12 MIL/MM3 (4.00-5.30) Hemoglobin 9.6 GM/DL 8.8 GM/DL (11.6-15.3) (11.6-15.3) Hematocrit 28.8 % 26.1 % (35.0-46.0) (35.0-46.0) Red Cell Distribution Width 18.0 % (11.6-17.2) Monocytes (%) (Auto) 9.1 % (0.0-8.0) Eosinophils (%) (Auto) 16.2 % (0.0-4.0) Eosinophils # (Auto) 1.4 TH/MM3 (0-0.4) Potassium Level 3.3 MEQ/L (3.5-5.1) Creatinine 0.40 MG/DL (0.50-1.00) Random Glucose 117 MG/DL (74-106) Calcium Level 7.7 MG/DL (8.5-10.1) Aspartate Amino Transf 61 U/L (15-37) (AST/SGOT) Alanine Aminotransferase 87 U/L (10-53) (ALT/SGPT) Alkaline Phosphatase 214 U/L (45-117) Albumin 2.3 GM/DL (3.4-5.0) Imaging CT Neck. PE at Discharge . Hospital Course The patient was transported to the [facility] where Dr. Jose Luis Bill and I arranged for inspection of her trach insertion site. The trach has been in for 7 months and she has bled massively twice from the site. Inspection above and below the site by the ENT service has not revealed a source of hemorrhage. Dr. Bill intubated the trachea orally and once engaged and ventilating I withdrew the indwelling tracheostomy tube. 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 The bleeding stopped immediately. I discussed our options again with her outside the room. He chose not to try an endovascular stent or operation. He decided to make her DNR/comfort measures only. He sighted her ongoing struggles with seizures, sedentary lifestyle, and malignant brain tumor as reasons she had expressed her desire recently for no major interventions. He has clearly thought a while about this decision and his has made her wishes clear. The bleeding has stopped temporarily and we will make her comfortable on mechanical ventilation. 08/16: Patient was made DNR comfort measures last night after Tracheoinnominate fistula discovered during active bleed. I pronounced her of cardiac standstill at 0909 this morning while on mechanical; ventilation. at bedside. Pt Condition on Discharge: Deteriorating Discharge Instructions Additional Information Pronounced by cardiac standstill at 0909 hours 08/16/16. Jeff Garcia MD Aug 16, 2016 10:50
== END 2016-08-16 10:19 | disposition expired | DRG 206 ==
LOC: NEPE 03:46 → NEDA 05:43 → NEDH 09:44 → N03B 16:02
PROVIDERS: ADMIT Internal Medicine Critical Care Medicine; ATTEND Internal Medicine Critical Care Medicine
PROC: 0BH17EZ Insertion of Endotracheal Airway into Trachea, Via Natural or Artificial Opening (ICD-10-PCS; principal; 2016-08-15)
PROC: 0CJS8ZZ Inspection of Larynx, Via Natural or Artificial Opening Endoscopic (ICD-10-PCS; 2016-08-15)
DX: J95.01 Hemorrhage from tracheostomy stoma (principal); I10 Essential (primary) hypertension; J95.04 Tracheo-esophageal fistula following tracheostomy; Z85.841 Personal history of malignant neoplasm of brain; Z92.3 Personal history of irradiation; K21.9 Gastro-esophageal reflux disease without esophagitis; G43.909 Migraine, unspecified, not intractable, without status migrainosus; G40.909 Epilepsy, unspecified, not intractable, without status epilepticus; I46.9 Cardiac arrest, cause unspecified; Z66 Do not resuscitate
CPT/HCPCS: 31500; 70491; 71010; 76937; 80053; 80184; 80185; 85014; 85018; 85025; 85610; 85730; 87641; 94002; 94003; C9113; J2060; J2250; J2270; J3010; J7030; Q9967